=== PATIENT | female | born 1930 | race Hispanic/Latino ===

== ENCOUNTER 2018-01-28 17:59 | Inpatient (IN) | payer MEDICAID ==
[~2018-01-28] VITALS: Ht 154.9 cm; Wt 53.6 kg
[2018-01-28] VITALS (12 sets, daily range): BP systolic 78–96; BP diastolic 50–65
[2018-01-28] MEDS ORDERED: NITROGLYCERIN/D5W 200 MCG/ML 250 ML ONE (18:10)
[2018-01-28] MEDS ORDERED: SODIUM CHLORIDE 0.9% 1000ML 1,000 ML ONE (18:12)
[2018-01-28 18:16] LABS: BASOPHILS % 0.2 % (0.0-1.0); HEMATOCRIT 40.2 % (34.2-44.1); HEMOGLOBIN 13.4 g/dL (12.0-16.0); LYMPHOCYTES # (AUTO) 0.9 (1.0-3.2); LYMPHOCYTES % 6.6 % (18.0-39.1); MEAN CORPUSCULAR HEMOGLOBIN 29.7 pg (28-32); MEAN CORPUSCULAR HGB CONC 33.3 g/dL (31-35); MEAN CORPUSCULAR VOLUME 89.1 fL (81-99); MONOCYTES # (AUTO) 0.9 (0.2-0.8); MONOCYTES % 6.8 % (4.4-11.3); NEUTROPHILS # (AUTO) 11.9 (2.1-6.9); NEUTROPHILS % 85.9 % (38.7-80.0); PLATELET COUNT 364 x10e3/uL (140-360); RED BLOOD COUNT 4.51 x10e6/uL (3.6-5.1); RED CELL DISTRIBUTION WIDTH 13.2 % (11.7-14.4)
--- NOTE | 2018-01-28 18:16 | Diagnostic Imaging Report ---
PROCEDURE: A single AP view of the chest. COMPARISON: None. INDICATIONS: SOB FINDINGS: See impression. IMPRESSION: 1. bilateral interstitial and alveolar opacities extending from the lalita consistent with pulmonary edema. 2. Opacification of the right lower hemithorax, likely representing pleural effusion and associated atelectasis. 3. Cardiac silhouette is obscured. 4. No acute bony abnormalities. Iglesia Pro M.D. Dictated by: Iglesia Pro M.D. on 01/28/2018 at 18:17 Electronically approved by: Iglesia Pro M.D. on 01/28/2018 at 18:17
[2018-01-28 18:20] LABS: ABG HCO3 26 mmol/L (23-28); ABG PCO2 55 mmHg (41-51); ABG PH 7.28 (7.31-7.41); ABG PO2 119 mmHg (80-105)
[2018-01-28 18:25] LABS: INR 1.42; PROTHROMBIN TIME 16.3 seconds (11.9-14.5)
[2018-01-28 18:26] LABS: PARTIAL THROMBOPLASTIN TIME 38.4 seconds (23.8-35.5)
[2018-01-28 18:34] LABS: ALBUMIN/GLOBULIN RATIO 0.6 (0.8-2.0); ANION GAP 18.6 mmol/L (8-16); CALCIUM 9.4 mg/dL (8.4-10.2); CREATININE, SERUM 1.21 mg/dL (0.57-1.11); POTASSIUM 4.6 mmol/L (3.5-5.1)
[2018-01-28 18:43] LABS: CREATINE KINASE MB 2.8 ng/mL (0-5.0)
[2018-01-28] MEDS ORDERED: FENTANYL CITRATE/PF 100MCG/2 ML INJ ONE (18:53)
[2018-01-28] MEDS ORDERED: FUROSEMIDE INJ 10 MG/ML 4 ML VIAL ONE (18:57)
[2018-01-28] MEDS ORDERED: AMIODARONE HCL 150MG 100 ML IV SCH (19:00)
[2018-01-28] MEDS ORDERED: AMIODARONE HCL 360MG 200 ML IV SCH (19:00)
[2018-01-28] MEDS ORDERED: SODIUM CHLORIDE 0.9% 250ML 250 ML IV STA (19:05)
[2018-01-28] MEDS ORDERED: AMIODARONE HCL 100 ML IV ONE (19:07)
[2018-01-28] MEDS ORDERED: PROPOFOL IV EMULSION 10MG/ML 100 ML ONE (19:08)
[2018-01-28] MEDS ORDERED: AMIODARONE HCL 150 MG in DEXTROSE 5% 100ML 100 ML IV SCH (19:15)
[2018-01-28] MEDS ORDERED: SODIUM CHLORIDE FLUSH 10 ML SYR INJ PRN (19:15)
[2018-01-28 19:18] LABS: CLARITY,URINE SL CLOUDY (CLEAR); COLOR,URINE YELLOW (YELLOW); KETONES,URINE NEGATIVE (NEGATIVE); LEUKOCYTE ESTERASE ,URINE NEGATIVE (NEGATIVE); NITRITE,URINE NEGATIVE (NEGATIVE); PROTEIN,URINE DIPSTICK 2+ (NEGATIVE); URINE UROBILINOGEN 4 mg/dL (0.2 - 1)
[2018-01-28 19:19] LABS: BILIRUBIN,URINE 1+ (NEGATIVE)
--- NOTE | 2018-01-28 19:25 | Diagnostic Imaging Report ---
Portable chest x-ray CPT code 04305 INDICATION: Intubated COMPARISON: Chest x-ray 1806 hours FINDINGS: Frontal view of the chest obtained at 1911 hours. The patient is slightly rotated. The cardiac silhouette is enlarged. Endotracheal tube terminates 3 to 4 cm above the franny. There is prominence of the soft tissue of the upper mediastinum to the right of midline. The lungs demonstrate prominence of the pulmonary vasculature. There is better aeration of the lungs. Right basilar airspace disease is present. There are no large effusions. No pneumothorax. The osseous structures are intact. IMPRESSION: 1. Endotracheal tube as described above. 2. Cardiomegaly and pulmonary vascular congestion. 3. Prominence of the upper mediastinum to the right of midline could represent soft tissue mass, lymphadenopathy, or vascular structures. 4. Right basilar airspace opacity could represent pneumonia. Attention should be paid on subsequent studies to assess interval change. Signed by: Dr. Shelley Stovall MD on 01/28/2018 7:21 PM
[2018-01-28] MEDS ORDERED: PROPOFOL IV EMULSION 10MG/ML 100 ML IV PRN ×2 (19:30→19:45)
[2018-01-28] MEDS: PROPOFOL IV EMULSION 10MG/ML 100 ML IV PRN (19:38)
[2018-01-28] MEDS: AMIODARONE HCL 900 MG in DEXTROSE 5 % 500ML BOTTLE 500 ML IV SCH (19:45)
[2018-01-28 19:49] LABS: AMORPHOUS SEDIMENT,URINE MANY (FEW); BACTERIA,URINE FEW /HPF
--- OUTSIDE RECORDS SUMMARY | 2018-01-28 20:09 | XMS REPORT ---
Author Author [facility] Address Unknown Phone Unavailable Care Team Providers Care Integrity Analyst Name Role Phone JAIME LYNNE Unavailable Unavailable Problems This patient has no known problems. Allergies, Adverse Reactions, Alerts This patient has no known allergies or adverse reactions. Medications This patient has no known medications. Results Test Description Test Time Test Comments Text Results Atomic Results Result Comments CHEST SINGLE (PORTABLE) [place] [address] Patient Name: HANNA MERCADO MR #: [id number] : 1930 Age/Sex: 87/F Req #: [id number] Adm Physician: Ordered by: JAIME LYNNE MD Report #: [id number] Location: ER Room/Bed: Procedure: [id number] DX/CHEST SINGLE (PORTABLE) Exam Date: Exam Time: REPORT STATUS: Signed Portable chest x-ray CPT code 63703 INDICATION: Intubated COMPARISON: Chest x-ray 1806 hours FINDINGS: Frontal view of the chest obtained at 1911 hours. The patient is slightly rotated. The cardiac silhouette is enlarged. Endotracheal tube terminates 3 to 4 cm above the franny. There is prominence of the soft tissue of the upper mediastinum to the right of midline. The lungs demonstrate prominence of the pulmonary vasculature. There is better aeration of the lungs. Right basilar airspace disease is present. There are no large effusions. No pneumothorax. The osseous structures are intact. IMPRESSION: 1. Endotracheal tube as described above. 2. Cardiomegaly and pulmonary vascular congestion. 3. Prominence of the upper mediastinum to the right of midline could represent soft tissue mass, lymphadenopathy, or vascular structures. 4. Right basilar airspace opacity could represent pneumonia. Attention should be paid on subsequent studies to assess interval change. Signed by: Dr. Abdullahi Stovall MD on 01/28/2018 7: 21 PM Dictated By: ABDULLAHI STOVALL MD 20 Transcribed By: PAULETTE on 01/28/181920 COPY TO: JAIME LYNNE MD CHEST SINGLE (PORTABLE) [place] [address] Patient Name: HANNA MERCADO MR #: [id number] : 1930 Age/Sex: 87/F Req #: [id number] Adm Physician: Ordered by: JAIME LYNNE MD Report #: [id number] Location: ER Room/Bed: Procedure: [id number] DX/CHEST SINGLE (PORTABLE) Exam Date: 01/28/18 Exam Time: 1800 REPORT STATUS: Signed PROCEDURE: A single AP view of the chest. COMPARISON: None. INDICATIONS: SOB FINDINGS: See impression. IMPRESSION: 1. bilateral interstitial and alveolar opacities extending from the lalita consistent with pulmonary edema. 2. Opacification of the right lower hemithorax, likely representing pleural effusion and associated atelectasis. 3. Cardiac silhouette is obscured. 4. No acute bony abnormalities. May Pro M.D. Dictated by: May Pro M.D. on 01/28/2018 at 18:17 Electronically approved by: May Pro M.D. on 01/28/2018 at 18 :17 Dictated By: MAY PRO MD 16 Transcribed By: DASIA on 01/28/181816 COPY TO: JAIME LYNNE MD
[2018-01-28] MEDS ORDERED: SODIUM CHLORIDE 0.9% 250ML 250 ML ONE (22:10)
[2018-01-29] VITALS (88 sets, daily range): BP systolic 66–125; BP diastolic 46–87
[2018-01-29] MEDS ORDERED: AMIODARONE HCL 360MG 200 ML IV SCH
[2018-01-29] MEDS: PROPOFOL IV EMULSION 10MG/ML 100 ML IV PRN (02:35)
[2018-01-29 06:16] LABS: CREATINE KINASE MB 2.2 ng/mL (0-5.0)
--- NOTE | 2018-01-29 06:50 | Diagnostic Imaging Report ---
EXAMINATION: CHEST SINGLE (PORTABLE) INDICATION: Follow-up of edema and intubation COMPARISON: 01/28/2018 FINDINGS: TUBES and LINES: Endotracheal tube in good position 4.5 cm above the franny. LUNGS: Lungs are not well inflated. Improving multifocal area of airspace disease with more confluent opacity in the right lung base and perihilar region. PLEURA: No pleural effusion or pneumothorax. HEART AND MEDIASTINUM: The cardiomediastinal silhouette is unremarkable. BONES AND SOFT TISSUES: No acute osseous lesion. Soft tissues are unremarkable. UPPER ABDOMEN: No free air under the diaphragm. IMPRESSION: 1. Mild interval improvement of airspace disease and lung volumes. 2. Mild interstitial edema present. 3. Follow-up until resolution is recommended due to differential diagnosis between infection and malignancy. Signed by: Dr. Nicolas Barger M.D. on 01/29/2018 6:47 AM
[2018-01-29 10:44] LABS: BASOPHILS % 0.1 % (0.0-1.0); HEMATOCRIT 32.8 % (34.2-44.1); HEMOGLOBIN 11.4 g/dL (12.0-16.0); LYMPHOCYTES # (AUTO) 0.6 (1.0-3.2); LYMPHOCYTES % 4.6 % (18.0-39.1); MEAN CORPUSCULAR HEMOGLOBIN 29.8 pg (28-32); MEAN CORPUSCULAR HGB CONC 34.8 g/dL (31-35); MEAN CORPUSCULAR VOLUME 85.9 fL (81-99); MONOCYTES # (AUTO) 0.5 (0.2-0.8); MONOCYTES % 3.9 % (4.4-11.3); NEUTROPHILS # (AUTO) 12.3 (2.1-6.9); PLATELET COUNT 252 x10e3/uL (140-360); RED BLOOD COUNT 3.82 x10e6/uL (3.6-5.1); RED CELL DISTRIBUTION WIDTH 13.2 % (11.7-14.4)
[2018-01-29] MEDS: AMIODARONE HCL 900 MG in DEXTROSE 5 % 500ML BOTTLE 500 ML IV SCH (10:57)
[2018-01-29 10:59] LABS: ANION GAP 15.7 mmol/L (8-16); CREATININE, SERUM 1.35 mg/dL (0.57-1.11); POTASSIUM 4.7 mmol/L (3.5-5.1)
[2018-01-29] MEDS ORDERED: ENOXAPARIN SODIUM INJ 100 MG/ML SYR SC SCH (11:30)
[2018-01-29 11:34] LABS: CREATINE KINASE MB 1.7 ng/mL (0-5.0)
--- NOTE | 2018-01-29 11:44 | Consultation ---
DATE OF CONSULTATION: CARDIOLOGY CONSULTATION CHIEF COMPLAINT: The patient is an 87-year-old with respiratory distress. HISTORY OF PRESENT ILLNESS: The patient is an 87-year-old who became severely short of breath at home and was taken by ambulance to the emergency room. The patient was subsequently intubated and admitted to the ICU. The patient was noted to have atrial fibrillation with a rapid ventricular response. There was no report of fevers or coughing at home. No report of chest pain at home. PAST MEDICAL HISTORY 1. The patient was apparently recently admitted to [facility] with a similar event about 3 weeks ago. 2. The patient has a history of atrial fibrillation. 3. History of congestive heart failure. SOCIAL HISTORY: The patient is from [facility]. The patient lives at home with her family. PHYSICAL EXAMINATION GENERAL: The patient is an intubated female. VITAL SIGNS: Temperature 98.8, blood pressure 102/62, pulse 75. HEAD, EARS, EYES, NOSE AND THROAT: The patient's cranium is normocephalic and atraumatic. The extraocular muscles are intact. Sclerae are anicteric. Pupils are equal, round and reactive to light. There is no pallor or cyanosis of the oral mucosa. There is no erythema or edema in the throat. NECK: The neck is supple. No jugular venous distention. CHEST: Exam demonstrated rhonchi and rales bilaterally. CARDIAC: Exam demonstrated an irregularly irregular rhythm. There was a 2/6 systolic murmur. ABDOMEN: Good bowel sounds, no tenderness, no masses. EXTREMITIES: No clubbing, no cyanosis, no edema. NEUROLOGIC: The patient was heavily sedated, and it was difficult to assess neurologic function. The patient was unresponsive on my exam. The patient's EKG demonstrated atrial fibrillation with rapid ventricular response. IMPRESSION: The patient is an 87-year-old with respiratory arrest of unclear etiology. Possibilities include congestive heart failure, aspiration or pulmonary embolism. Given the limited history, it is difficult to tell. RECOMMENDATIONS 1. Echocardiogram has been ordered. 2. The patient has been started on IV amiodarone for atrial fibrillation. 3. The patient will be diuresed with IV Lasix. 4. The patient will require anticoagulation with Lovenox. Job#: [id number]
[2018-01-29] MEDS: ENOXAPARIN SOD INJ 60 MG/0.6 ML SYR SC SCH (11:45)
[2018-01-29] MEDS: FUROSEMIDE INJ 10 MG/ML 4 ML VIAL IV SCH ×2 (12:00→18:27)
[2018-01-29] MEDS ORDERED: METHYLPREDNISOLONE SOD SUCC 40 MG/ML VIAL IV ONE (12:30)
[2018-01-29] MEDS ORDERED: MIDAZOLAM HCL 2 MG/2 ML VIAL ONE (13:46)
[2018-01-29] MEDS ORDERED: SUCCINYLCHOLINE CHLORIDE 20 MG/ML 10ML VIAL ONE (13:46)
[2018-01-29] MEDS ORDERED: ETOMIDATE 2 MG/ML 10 ML INJ IV ONE (13:46)
[2018-01-29] MEDS ORDERED: DEXTROSE 50% SYRINGE 50 ML IV PRN (15:45)
[2018-01-29] MEDS ORDERED: INSULIN DETEMIR 100 UNIT/ML PEN SQ SCH (15:45)
[2018-01-29] MEDS: FAMOTIDINE 20 MG TAB PO SCH (16:30)
[2018-01-29] MEDS: INSULIN REGULAR, HUMAN 100 UNIT/1 ML 3ML VIAL SQ SCH (16:30)
[2018-01-29 16:37] LABS: ABG PCO2 32 mmHg (41-51); ABG PH 7.49 (7.31-7.41); ABG PO2 63 mmHg (80-105)
[2018-01-29 16:38] LABS: ABG HCO3 25 mmol/L (23-28)
--- NOTE | 2018-01-29 17:43 | History and Physical ---
The patient has no local PCP. CHIEF COMPLAINT: Respiratory distress. HISTORY OF PRESENT ILLNESS: Ms. Monico Claros is an 87-year-old lady who has a history of hypertension, who was in her usual state of health until 2 weeks ago when she developed respiratory distress and palpitations and was seen at [facility] for AFib with rapid ventricular response. The patient had pulmonary edema at that time and also was noted to have some chronic lung changes possibly related to former smoking and second-hand smoke. The patient was kept in [facility] for several days. She was discharged home with cardiac medications, which the family does not know what they are. She was started on Eliquis, which when she went home the pharmacy did not have it for a couple of days. She was discharged home about 3 or 4 days ago. She did not take any medication the 1st day she was home. She was unable to take her Eliquis and another one of her heart medicines the 2nd day, but did take all of her medications yesterday. They did not bring a list of medications or what she was taking. She presents now with several hours of rapidly deteriorating respiratory distress, very short of breath with palpitations. Found to be in AFib with a rate of 150 with marked respiratory distress. The patient was urgently intubated in the ER. Her initial blood gas prior to intubation showed pH 7.28, a pCO2 of 55, pO2 of 119. REVIEW OF SYSTEMS: Unobtainable as the patient is intubated and sedated. PAST MEDICAL HISTORY: Significant for longstanding hypertension. Recent development of atrial fibrillation 2 weeks ago with evidence of congestive heart failure at that time, probably diastolic. Unable to know for sure. The family denies the patient has a history of diabetes although her blood sugars are quite elevated. COPD, which was diagnosed 2 weeks ago at [facility] with chronic lung changes on her chest x-ray. MEDICATIONS: Again, currently unknown. SURGICAL HISTORY: Her family denies any significant surgical history. SOCIAL HISTORY: As noted, she is a former smoker. FAMILY HISTORY: Significant for hypertension. SOCIAL HISTORY: The patient is and speaks only [place]. She is from [facility]. She moved here 3 years ago. She smoked 1 cigarette a day in [facility], which she rolled herself, and she cooked using a wood-burning stove indoors up until 3 years ago, so a lot of smoke and second-hand smoke exposure. The patient speaks only [place]de[place]. She does not drink or use illegal drugs. She is generally independently functioning. PHYSICAL EXAMINATION PSYCHIATRIC: Unable to obtain due to intubation and sedation. She has a normal body habitus. VITAL SIGNS: Initial blood pressure 131/80, currently 98/68. Initial heart rate 150, atrial fib with RVR. Currently 99, still in AFib. Respiratory rate 16 on the ventilator. O2 sat 100%. Temperature 98.1. HEENT: Head is atraumatic. Her eyes are anicteric with clear conjunctivae. Ears and nares are without erythema or discharge. She is orally intubated. NECK: Supple, with no mass or thyromegaly. LYMPHATIC SYSTEM: She has no palpable cervical, axillary or inguinal adenopathy. CARDIOVASCULAR: Her heart has an irregularly irregular rhythm, somewhat tachycardic without murmur. She has no carotid bruit. She has no peripheral edema. She has weak dorsal pedal pulses. RESPIRATORY: Lungs reveal diminished breath sounds, some bibasilar rales. Some coarse airway sounds. She is being ventilated. GASTROINTESTINAL: Abdomen is soft without organomegaly, masses or tenderness. She has normal bowel sounds present. CUTANEOUS: Her skin is warm and dry to touch with no rash or skin breakdown. MUSCULOSKELETAL: Her joints are in normal alignment with no erythema or swelling. She has no calf tenderness. NEUROLOGIC: Exam is nonfocal with intact cranial nerves and no motor or sensory deficits. Patient is sedated but does move all extremities. DIAGNOSTIC STUDIES: Initial chest x-ray shows bilateral pulmonary edema. Subsequent chest x-ray shows status post intubation. Then her chest x-ray this morning showed some mild improvement in aeration bilaterally. Her UA is clear. BNP initially 708.1, today 781.1. Troponin 0.037, 0.057, 0.057, all negative. Blood gases noted above showed a pH of 7.28, pCO2 of 55, pO2 of 119. That was on room air prior to intubation. Her chemistry profile shows normal electrolytes. CO2 24, creatinine 1.35, BUN 24 for a GFR of 37. Calcium is 9.0. Her transaminases and alk phos are markedly elevated. AST is 244, ALT is 175, alk phos is 226. Bilirubin is normal at 0.7. Her CBC shows a white count of 13,400 with 91% neutrophils. Hemoglobin 11.4, hematocrit 32.8 and platelet count 252,000. IMPRESSION AND PLAN 1. Uaipn-te-ggqabaa diastolic heart failure. The patient has been given IV Lasix times 3 doses. Will check an echocardiogram to assess LV function. 2. Atrial fibrillation with rapid ventricular response. The patient has been in atrial fibrillation for 2 weeks, unlikely that she will convert. She is currently on IV amiodarone for rate control. Cardiology has been consulted, and she has been started on weight-based Lovenox 60 mg subcutaneous q.12 h. 3. History of hypertension. Patient is currently normotensive. Will continue to monitor. 4. Hyperglycemia without a previous diagnosis of diabetes. The patient will be placed on sliding-scale insulin, and will check an A1c level. Will also use some Levemir. 5. The hypertension is complicated by chronic kidney disease, stage 3. The type-2 diabetes is also complicated by chronic kidney disease, stage 3. Hypertension is also complicated by chronic diastolic heart failure. 6. Elevated liver enzymes possibly due to passive congestion of the liver from the congestive heart failure. Will check an ultrasound and hepatitis panel. 7. For prophylaxis, the patient is on weight-based Lovenox for deep vein thrombosis and stroke prophylaxis and Pepcid orally for gastrointestinal prophylaxis. Job#: [id number]
[2018-01-29 18:03] LABS: CLARITY,URINE CLEAR (CLEAR); COLOR,URINE YELLOW (YELLOW)
[2018-01-29 18:04] LABS: KETONES,URINE NEGATIVE (NEGATIVE); LEUKOCYTE ESTERASE ,URINE NEGATIVE (NEGATIVE); NITRITE,URINE NEGATIVE (NEGATIVE); PROTEIN,URINE DIPSTICK NEGATIVE (NEGATIVE)
[2018-01-29 18:05] LABS: BILIRUBIN,URINE NEGATIVE (NEGATIVE); URINE UROBILINOGEN 0.2 mg/dL (0.2 - 1)
[2018-01-29 18:12] LABS: BACTERIA,URINE MODERATE /HPF; EPITHELIAL CELLS,URINE FEW /LPF; RBC,URINE >50 /HPF (0-5)
[2018-01-29 18:13] LABS: AMORPHOUS SEDIMENT,URINE FEW (FEW)
[2018-01-29] MEDS: LEVALBUTEROL HCL SOLN NEBU 0.63 MG/3 ML NEB INH PRN (19:10)
--- NOTE | 2018-01-29 19:46 | Consultation ---
DATE OF CONSULTATION: PULMONARY/CRITICAL CARE CONSULTATION CHIEF COMPLAINT: Respiratory failure. REFERRING PHYSICIAN: Dr. Doherty. HISTORY OF PRESENT ILLNESS: The patient is an 87-year-old woman. She lived in [facility] up until 4 to 5 years ago. She was not a smoker, but she cooked with a wood stove for most of her life. She never had tuberculosis, asthma, or any other known to pulmonary disease. About 3 weeks ago, she had difficulty breathing and a fast heart rate. She required hospitalization at [facility] for 10 days. She was seen at [facility] and discharged home with some medications. She also had a pulmonary evaluation. Apparently, she had a bronchoscopy with biopsy, but the family does not know the results of this. She now returns with difficulty breathing and congestion. She has some prolonged expiratory wheezing. She did not have chest pain. She denied any fevers. PAST SURGICAL HISTORY: The family denies any past surgeries. PAST MEDICAL HISTORY 1. History of rapid heart rate and difficulty breathing at [facility], which may be atrial fibrillation. 2. No known history of asthma, tuberculosis, or other respiratory problems. SOCIAL HISTORY: The patient lived in [facility] up until 4 or 5 years ago. She cooked with a wood stove most of her life. She occasionally smoked a cigarette, but was not a regular smoker. She has not been a drinker. She has 6 adult children, all of whom live in the [place] area. The third adult son has assigned durable power of employment attorney for health care. FAMILY HISTORY: Family history is noncontributory. REVIEW OF SYSTEMS: The patient did not have fevers. There was no headache. Patient did not have any neck pain. She did not have chest pain. She did have some difficulty breathing and some congestion. She denied any abdominal pain. There is no nausea or vomiting. She is not having any diarrhea. There was no leg edema. She did not have any focal neurological problems. PHYSICAL EXAMINATION VITAL SIGNS: The patient is afebrile. Vital signs are stable. HEENT: Shows no facial swelling or erythema. The nasal mucosa is normal. The oropharynx is normal. LYMPHATIC: Shows no submandibular, cervical, or supraclavicular adenopathy. CARDIAC: Reveals a regular rate rhythm with a normal S1 and S2. There are no murmurs or rubs. LUNGS: To auscultation, lungs reveal coarse breath sounds bilaterally. ABDOMEN: Soft and nontender. There is no rebound or guarding. EXTREMITIES: Show no leg edema or calf tenderness. There is no cyanosis or clubbing. SKIN: Shows no rashes. NEUROLOGIC: Shows no focal abnormalities. LABORATORY DATA: The white blood cell count is 13.5 and hemoglobin is 11.4. The platelet count is 252. The BUN to creatinine ratio is 24 to 1.35 and sodium is 130. The BNP was elevated at 281. RADIOGRAPHIC DATA: Chest x-ray shows some interstitial changes suggestive of possible congestive heart failure. IMPRESSION 1. Qzsqz-uv-zybgima respiratory failure. 2. Gihtj-bk-pszijbg systolic congestive heart failure. 3. Chronic obstructive pulmonary disease secondary to biomass exposure and prolonged exposure to smoke fumes. 4. Hyponatremia. PLAN 1. I decreased the tidal volume to 450 mL. We will repeat an ABG. 2. Continue diuresis and repeat x-ray tomorrow. 3. Echocardiogram and full cardiology evaluation are pending. 4. Sputum for Gram stain and C and S. 5. Obtain records from [facility]. Job#: [id number] VAS
[2018-01-29] MEDS: INSULIN DETEMIR 100 UNIT/ML PEN SQ SCH (21:00)
[2018-01-30] VITALS (64 sets, daily range): BP systolic 75–126; BP diastolic 42–90
[2018-01-30] MEDS: ENOXAPARIN SOD INJ 60 MG/0.6 ML SYR SC SCH ×2 (00:37→11:45)
[2018-01-30] MEDS: INSULIN REGULAR, HUMAN 100 UNIT/1 ML 3ML VIAL SQ SCH ×5 (00:38→21:00)
[2018-01-30] MEDS: LEVALBUTEROL HCL SOLN NEBU 0.63 MG/3 ML NEB INH PRN ×4 (00:50→19:00)
[2018-01-30] MEDS: AMIODARONE HCL 900 MG in DEXTROSE 5 % 500ML BOTTLE 500 ML IV SCH (02:39)
[2018-01-30 05:56] LABS: BASOPHILS % 0.2 % (0.0-1.0); HEMATOCRIT 33.4 % (34.2-44.1); HEMOGLOBIN 11.6 g/dL (12.0-16.0); LYMPHOCYTES # (AUTO) 0.8 (1.0-3.2); LYMPHOCYTES % 5.1 % (18.0-39.1); MEAN CORPUSCULAR HEMOGLOBIN 29.8 pg (28-32); MEAN CORPUSCULAR HGB CONC 34.7 g/dL (31-35); MEAN CORPUSCULAR VOLUME 85.9 fL (81-99); MONOCYTES # (AUTO) 1.2 (0.2-0.8); MONOCYTES % 7.9 % (4.4-11.3); NEUTROPHILS # (AUTO) 13.1 (2.1-6.9); NEUTROPHILS % 86.1 % (38.7-80.0); PLATELET COUNT 331 x10e3/uL (140-360); RED BLOOD COUNT 3.89 x10e6/uL (3.6-5.1); RED CELL DISTRIBUTION WIDTH 13.3 % (11.7-14.4)
[2018-01-30 06:26] LABS: ALBUMIN 2.5 g/dL (3.5-5.0); ALBUMIN/GLOBULIN RATIO 0.5 (0.8-2.0); CALCIUM 9.2 mg/dL (8.4-10.2); CREATININE, SERUM 1.39 mg/dL (0.57-1.11)
[2018-01-30 06:27] LABS: MAGNESIUM 2.2 MG/DL (1.3-2.1)
[2018-01-30 06:28] LABS: B-TYPE NATRIURETIC PEPTIDE2 768.8 pg/mL (0-100)
[2018-01-30 06:48] LABS: FREE T4 (FREE THYROXINE) 1.51 ng/dL (0.9-1.8); THYROID STIMULATING HORMONE 0.32 uIU/mL (0.350-4.940)
--- NOTE | 2018-01-30 06:59 | Diagnostic Imaging Report ---
EXAMINATION: CHEST SINGLE (PORTABLE) INDICATION: Respiratory failure COMPARISON: 01/28/2018 FINDINGS: TUBES and LINES: Endotracheal tube in good position 2.5 cm above the franny. LUNGS: Lungs are not well inflated. Worsening multifocal area of airspace disease with more confluent opacity in the right lung base and perihilar region. PLEURA: Small right pleural effusion HEART AND MEDIASTINUM: The cardiomediastinal silhouette is unremarkable. BONES AND SOFT TISSUES: No acute osseous lesion. Soft tissues are unremarkable. UPPER ABDOMEN: No free air under the diaphragm. IMPRESSION: 1. Worsening of airspace disease and lung volumes. 2. Mild interstitial edema present. 3. Follow-up until resolution is recommended due to differential diagnosis between infection and malignancy. Signed by: Dr. Nicolas Barger M.D. on 01/30/2018 6:55 AM
[2018-01-30] MEDS: FAMOTIDINE 20 MG TAB PO SCH ×2 (07:30→16:30)
[2018-01-30] MEDS: INSULIN DETEMIR 100 UNIT/ML PEN SQ SCH (09:00)
[2018-01-30] MEDS: AZITHROMYCIN 500MG/NS 250 ML 250 ML IV SCH (09:30)
[2018-01-30] MEDS: LEVOFLOXACIN 250MG/D5W 50ML 50 ML IV SCH (09:30)
[2018-01-30] MEDS ORDERED: AMIODARONE HCL 900 MG in DEXTROSE 5% 500ML 500 ML IV SCH (09:45)
[2018-01-30] MEDS ORDERED: AMIODARONE HCL 150 MG/100 ML BAG IV ONE (09:45)
[2018-01-30] MEDS ORDERED: LORAZEPAM INJ 2 MG/ML VIAL IV ONE (09:45)
[2018-01-30] MEDS ORDERED: AMIODARONE HCL 150 MG in DEXTROSE 5% 100ML 100 ML IV SCH (10:00)
[2018-01-30] MEDS ORDERED: AMIODARONE HCL 900 MG in DEXTROSE 5% 500ML 500 ML IV ONE (10:00)
--- NOTE | 2018-01-30 10:05 | Progress Note ---
DATE: PULMONARY/CRITICAL CARE PROGRESS NOTE The patient had an increased heart rate during the night. Her heart rate is 140 to 150 with irregularly irregular periods. She was on amiodarone. She remains on the mechanical ventilator. She does have some secretions. OBJECTIVE VITAL SIGNS: The patient has a blood pressure of 90/60 and has a heart rate of 140 to 150. Her vent is set at PRVC of 16 with a tidal volume of 400. Her oxygen is set at 50%, and her saturation is 96%. HEENT: No facial swelling or erythema. The patient has an oral endotracheal tube in place. LYMPHATIC: No submandibular, cervical, or supraclavicular adenopathy. CARDIAC: An irregularly irregular rhythm with a normal S1 and S2. LUNGS: Auscultation reveals wheezing and rhonchorous breath sounds bilaterally. ABDOMEN: Soft and nontender. There is no rebound or guarding. EXTREMITIES: No leg edema or calf tenderness. IMPRESSION 1. Kdgab-je-vyibejf respiratory failure. 2. Zmbth-is-snrtuue systolic congestive heart failure. 3. Leukocytosis and possible pneumonia. 4. Chronic obstructive pulmonary disease. PLAN 1. The patient will be started on antibiotics to cover for hospital-acquired pathogens and possible pneumonia. 2. Consult infectious disease. 3. Pressors as needed to maintain a mean arterial blood pressure over 60. 4. Adjust cardiac medications to control the rapid atrial fibrillation. 5. Apparently, the patient does not have a living will in place. 6. The overall prognosis is poor. Job#: [id number]
[2018-01-30] MEDS ORDERED: DIGOXIN INJ 0.25 MG/ML 2 ML AMP IV ONE (12:45)
[2018-01-30] MEDS ORDERED: DIGOXIN INJ 0.25 MG/ML 2 ML AMP ONE (12:51)
[2018-01-30] MEDS: SODIUM CHLORIDE 0.9% 250ML IRRIG IR SCH ×3 (13:00→21:00)
--- NOTE | 2018-01-30 13:35 | Diagnostic Imaging Report ---
EXAM: Complete Abdominal Ultrasound INDICATION: \S\elevated liver enzymes COMPARISON: None. TECHNIQUE: Transverse and longitudinal images of the upper abdomen were obtained. FINDINGS: Liver: Size: 14.2 cm in the right midclavicular line, normal Appearance: Normal echogenicity, smooth contour Mass: No focal masses Spleen: Size: 6.5 cm in length, normal Echogenicity: Normal Mass: No focal masses Gallbladder: Stones/Sludge: Multiple large echogenic gallstones measuring up to 1 cm Wall: 0.2 cm Appearance: No wall thickening, pericholecystic fluid or hydrops. Sonographic Rogers's Sign: Negative Bile Ducts: Intrahepatic Ducts: No dilatation Extrahepatic Ducts: Common bile duct measures 0.4 cm, no dilatation Pancreas: Visualized portions of the pancreatic head, neck and proximal body are normal. Kidneys: Length: Right 8.2 cm Left 9.0 cm Echogenicity: Normal Collecting System: No hydronephrosis Stone: None Cyst/Mass: None Vessels: Aorta: Visualized portions are normal Inferior Vena Cava: Visualized portions are normal Main Portal Vein: 0.9 cm, normal size with hepatopetal flow. Free Fluid: No ascites or pleural effusion IMPRESSION: Cholelithiasis. No sonographic findings to suggest cholecystitis. LV hyper to kid LV hypo to spleen García hyper to LV Liver Male < 16 cm Female < 15 cm Kidneys: NL 9-12 cm, <13 cm Spleen < 12 cm CBD < 7 mm CHD < 4-5 mm GB Wall < 3 mm Hydrops > 10 x 5 cm PV < 13 mm Panc. duct 3-2-1 Signed by: Dr. Maki Foy M.D. on 01/30/2018 1:31 PM
[2018-01-30] MEDS: METOCLOPRAMIDE HCL 10 MG TAB NG SCH ×2 (14:00→22:00)
[2018-01-30] MEDS: FUROSEMIDE INJ 10 MG/ML 4 ML VIAL IV SCH ×2 (14:00→23:22)
[2018-01-30] MEDS: PIPERACILLIN/TAZO 2.25 GM 50 ML IV SCH ×2 (14:00→21:55)
--- NOTE | 2018-01-30 15:51 | Diagnostic Imaging Report ---
EXAMINATION: CHEST XRAY LINE PLACEMENT INDICATION: \S\S/P PICC LINE PLACEMENT \[id number] \S\[id number] COMPARISON: Chest radiograph on 01/30/2018 5:00 AM FINDINGS: Single portable AP view of the chest. The visualized bones and soft tissues, cardiac silhouette lungs, pleura appear unchanged. IMPRESSION: 1. Lines/tubes: Interval placement of a right PICC with tip overlying the superior right atrium. Endotracheal tube remains unchanged. 2. Worsening patchy airspace opacities, right greater than left may represent a combination of edema and multifocal pneumonia. 3. Worsening blunting of the right costophrenic angle suggestive of pleural effusion. Signed by: Dr. Maki Foy M.D. on 01/30/2018 3:48 PM
[2018-01-30] MEDS ORDERED: DILTIAZEM HCL 5 MG/ML 5 ML VIAL IV ONE (16:00)
[2018-01-30] MEDS ORDERED: DILTIAZEM HCL 100 ML IV SCH (16:00)
[2018-01-30] MEDS ORDERED: DILTIAZEM HCL IV SOLN 125 MG in SODIUM CHLORIDE 0.9% 100 ML 100 ML IV PRN ×4 (16:15)
[2018-01-30] MEDS: DILTIAZEM HCL IV SOLN 125 MG in SODIUM CHLORIDE 0.9% 100 ML 100 ML IV SCH (16:15)
[2018-01-30] MEDS ORDERED: DILTIAZEM HCL VIAL 5 ML ONE (16:38)
[2018-01-30] MEDS ORDERED: DIGOXIN INJ 0.25 MG/ML 2 ML AMP IV SCH (16:45)
[2018-01-30] MEDS ORDERED: SODIUM CHLORIDE 0.9% 250ML 500 ML ONE (16:48)
[2018-01-30] MEDS ORDERED: LORAZEPAM INJ 2 MG/ML VIAL ONE (16:58)
--- NOTE | 2018-01-30 17:00 | Diagnostic Imaging Report ---
EXAMINATION: CHEST XRAY LINE PLACEMENT INDICATION: \S\CHECK PICC LINE PLACEMENT COMPARISON: None FINDINGS: AP view FINDINGS: Single portable AP view of the chest. The visualized bones and soft tissues, cardiac silhouette lungs, pleura appear unchanged. IMPRESSION: 1. Lines/tubes: Interval pretreatment of the right PICC with tip now overlying the mid/lower SVC. Endotracheal tube remains unchanged. 2. Persistent diffuse patchy airspace opacities, right greater than left may represent a combination of edema and multifocal pneumonia. 3. Persistent blunting of the right costophrenic angle suggestive of pleural effusion. Signed by: Dr. Mkai Foy M.D. on 01/30/2018 4:56 PM
[2018-01-30 17:53] LABS: ABG PCO2 32 mmHg (41-51); ABG PH 7.54 (7.31-7.41); ABG PO2 59 mmHg (80-105)
[2018-01-30 17:54] LABS: ABG HCO3 27 mmol/L (23-28)
[2018-01-30] MEDS: PROPOFOL IV EMULSION 10MG/ML 100 ML IV PRN (20:00)
[2018-01-30] MEDS ORDERED: FENTANYL CITRATE INJ 2,000 MCG in SODIUM CHLORIDE 0.9% 250ML 210 ML IV PRN (21:45)
[2018-01-30] MEDS ORDERED: NOREPINEPHRINE INJ 4MG/4ML 8 MG in DEXTROSE 5% 250ML 250 ML IV PRN (21:45)
[2018-01-30] MEDS: LORAZEPAM INJ 2 MG/ML VIAL IV PRN (21:55)
[2018-01-30 22:45] LABS: CLARITY,URINE CLOUDY (CLEAR); COLOR,URINE RED (YELLOW)
[2018-01-30 22:46] LABS: BILIRUBIN,URINE 1+ (NEGATIVE); KETONES,URINE TRACE (NEGATIVE); LEUKOCYTE ESTERASE ,URINE NEGATIVE (NEGATIVE); NITRITE,URINE NEGATIVE (NEGATIVE); PROTEIN,URINE DIPSTICK 2+ (NEGATIVE); URINE UROBILINOGEN 1 mg/dL (0.2 - 1)
[2018-01-30 22:48] LABS: BACTERIA,URINE MANY /HPF; EPITHELIAL CELLS,URINE FEW /LPF; RBC,URINE >50 /HPF (0-5); WBC,URINE (MAN) 0-5 /HPF (0-5)
--- NOTE | 2018-01-30 23:17 | Diagnostic Imaging Report ---
EXAM: ABDOMEN-1VIEW (KUB) DATE: 01/30/2018 10:29 PM Time stamp on exam: 2245 hours INDICATION: NG tube placement COMPARISON: None FINDINGS: LINES/TUBES: NG tube is visualized along the lower mediastinum, left upper quadrant and in the distribution of the gastric antrum and first/second portion of the duodenum BOWEL PATTERN: Motion artifact limits the evaluation. No evidence of significant distention. SOFT TISSUES: No abnormal calcifications. No mass effect. LUNG BASES: Lung bases are poorly visualized with atelectasis in the right lung base. BONES: No acute findings. IMPRESSION: NG tube appears to be in the distribution of the GI tract with tip at the duodenum. Signed by: Dr. Nicolas Barger M.D. on 01/30/2018 11:14 PM
[2018-01-30] MEDS ORDERED: FUROSEMIDE INJ 10 MG/ML 4 ML VIAL ONE (23:26)
[2018-01-31] VITALS (99 sets, daily range): BP systolic 60–135; BP diastolic 27–99
[2018-01-31] MEDS: ENOXAPARIN SOD INJ 60 MG/0.6 ML SYR SC SCH ×2 (00:08→12:34)
[2018-01-31] MEDS: LORAZEPAM INJ 2 MG/ML VIAL IV PRN (00:08)
[2018-01-31] MEDS: LEVALBUTEROL HCL SOLN NEBU 0.63 MG/3 ML NEB INH PRN ×3 (00:45→15:22)
[2018-01-31] MEDS: SODIUM CHLORIDE 0.9% 250ML IRRIG IR SCH ×6 (01:00→21:56)
[2018-01-31] MEDS: PROPOFOL IV EMULSION 10MG/ML 100 ML IV PRN ×3 (03:32→23:36)
--- NOTE | 2018-01-31 03:45 | Diagnostic Imaging Report ---
EXAMINATION: CHEST SINGLE (PORTABLE) INDICATION: Respiratory failure COMPARISON: 01/30/2018 FINDINGS: AP view FINDINGS: Single portable AP view of the chest. The visualized bones and soft tissues, cardiac silhouette lungs, pleura appear unchanged. IMPRESSION: 1. Lines/tubes: Interval placement of NG tube with distal tip at least at the level of the gastric antrum. Endotracheal tube and right upper extremity PICC line are stable. 2. Persistent diffuse patchy airspace opacities, right greater than left compatible with combination of edema and multifocal pneumonia. 3. Persistent blunting of the right costophrenic angle suggestive of pleural effusion. Signed by: Dr. Nicolas Barger M.D. on 01/31/2018 3:41 AM
--- NOTE | 2018-01-31 03:46 | Diagnostic Imaging Report ---
EXAM: ABDOMEN-1VIEW (KUB) DATE: 01/31/2018 5:00 AM Time stamp on exam: 0304 AM INDICATION: NG tube placement. COMPARISON: 01/30/2018 FINDINGS: LINES/TUBES: NG tube lies now in the epigastrium with tip overlying the region of the gastric antrum. BOWEL PATTERN: Few distended small bowel loops present in the right hemiabdomen. SOFT TISSUES: No abnormal calcifications. No mass effect. LUNG BASES: Poorly visualized. BONES: No acute findings. IMPRESSION: 1. Few distended small bowel loops in the right hemiabdomen. 2. NG tube is in good position. Signed by: Dr. Nicolas Barger M.D. on 01/31/2018 3:43 AM
[2018-01-31 05:20] LABS: BASOPHILS % 0.2 % (0.0-1.0); HEMATOCRIT 32.2 % (34.2-44.1); HEMOGLOBIN 10.8 g/dL (12.0-16.0); LYMPHOCYTES # (AUTO) 0.9 (1.0-3.2); LYMPHOCYTES % 6.7 % (18.0-39.1); MEAN CORPUSCULAR HEMOGLOBIN 29.4 pg (28-32); MEAN CORPUSCULAR HGB CONC 33.5 g/dL (31-35); MEAN CORPUSCULAR VOLUME 87.7 fL (81-99); MONOCYTES # (AUTO) 0.8 (0.2-0.8); MONOCYTES % 5.9 % (4.4-11.3); NEUTROPHILS # (AUTO) 11.2 (2.1-6.9); NEUTROPHILS % 86.7 % (38.7-80.0); PLATELET COUNT 309 x10e3/uL (140-360); RED BLOOD COUNT 3.67 x10e6/uL (3.6-5.1); RED CELL DISTRIBUTION WIDTH 13.8 % (11.7-14.4)
[2018-01-31 05:38] LABS: ALBUMIN 2.1 g/dL (3.5-5.0); ALBUMIN/GLOBULIN RATIO 0.5 (0.8-2.0); ANION GAP 14.7 mmol/L (8-16); CALCIUM 8.4 mg/dL (8.4-10.2); CREATININE, SERUM 1.41 mg/dL (0.57-1.11); POTASSIUM 3.7 mmol/L (3.5-5.1)
[2018-01-31] MEDS: METOCLOPRAMIDE HCL 10 MG TAB NG SCH ×3 (06:20→22:02)
[2018-01-31] MEDS: PIPERACILLIN/TAZO 2.25 GM 50 ML IV SCH (06:20)
[2018-01-31] MEDS: INSULIN REGULAR, HUMAN 100 UNIT/1 ML 3ML VIAL SQ SCH ×3 (06:39→18:21)
[2018-01-31] MEDS: FAMOTIDINE 20 MG TAB PO SCH ×2 (08:08→17:57)
[2018-01-31 08:12] LABS: BAND NEUTROPHILS % (MANUAL) 4 %; EOSINOPHILS % (MANUAL) 1 % (0-7); LYMPHOCYTES % (MANUAL) 8 % (19-48); MONOCYTES % (MANUAL) 3 % (3.4-9.0); NEUTROPHILS % (MANUAL) 84 % (40-74)
[2018-01-31 08:13] LABS: ANISOCYTOSIS SLIGHT; HYPOCHROMASIA SLIGHT; PLATELET ESTIMATE ADEQUATE; PLATELET MORPHOLOGY COMMENT NORMAL
[2018-01-31 08:14] LABS: RBC MORPHOLOGY COMMENT NORMAL
[2018-01-31] MEDS ORDERED: NOREPINEPHRINE 8 MG/D5W 250 ML 250 ML IV PRN (08:15)
[2018-01-31 08:29] LABS: ABG HCO3 29 mmol/L (23-28); ABG PCO2 41 mmHg (41-51); ABG PH 7.46 (7.31-7.41); ABG PO2 71 mmHg (80-105)
[2018-01-31] MEDS: NOREPINEPHRINE 8 MG/D5W 250 ML 250 ML IV PRN (08:30)
[2018-01-31] MEDS ORDERED: DIGOXIN INJ 0.25 MG/ML 2 ML AMP IV SCH (09:00)
[2018-01-31] MEDS: AZITHROMYCIN 500MG/NS 250 ML 250 ML IV SCH (09:30)
[2018-01-31] MEDS: AMIODARONE HCL 200 MG TAB PO SCH (09:30)
[2018-01-31] MEDS: LEVOFLOXACIN 250MG/D5W 50ML 50 ML IV SCH (09:30)
[2018-01-31] MEDS ORDERED: VANCOMYCIN 1GM/NS 250 ML 250 ML IV ONE (10:00)
[2018-01-31] MEDS: CEFEPIME HCL 1 GM VIAL IV SCH ×2 (10:30→22:02)
--- NOTE | 2018-01-31 10:37 | Consultation ---
DATE OF CONSULTATION: January 31, 2018 REASON FOR CONSULTATION: Leukocytosis. Thank you, Dr. Doherty, for asking me to see this patient. HISTORY: The patient is an 87-year-old woman referred for leukocytosis. She is unable to give history because she is intubated and sedated. Therefore, information was obtained from the family and supplemented by chart review. She was admitted through the emergency department on January 28, 2018, with acute hypercapnic respiratory failure 1-2 days after discharge from hospitalization. The patient presented to the emergency department with progressive shortness of breath and cough. There was no fever or chest pain at home. The patient had been hospitalized at [facility] for 10 days because of similar issues, and was found to have atrial fibrillation with rapid ventricular rate. The patient had became ill in [facility] while visiting. The family denies sick contact at [facility], but the patient was exposed to parrots and chicken. In the emergency department, she was noted to have a temperature of 97.9 degrees Fahrenheit, pulse 138, respiratory rate 40, blood pressure 131/80, and oxygen saturation at 97% on 18 L of oxygen. The patient was intubated. ECG showed atrial fibrillation with rapid ventricular rate. The chest x-ray showed pulmonary edema and opacification of right lower hemothorax. Initial laboratory studies showed leukocyte count of 13,890 with 85.9% neutrophils. BUN 14, creatinine 1.2, blood glucose 333, AST 244, ALT 175, alk phos 226, and total bilirubin 0.7, and troponin 0.057. The patient's was evaluated by this hot stick man. PAST MEDICAL HISTORY: Hypertension. PAST SURGICAL HISTORY: None. ALLERGIES: NO KNOWN DRUG ALLERGIES. MEDICATIONS: The current antibiotics are: 1. Zosyn 2.25 g IVPB q.8 h. 2. Levaquin 250 mg IVPB q.24 h. 3. Azithromycin 500 mg IVPB q.24 h. IMMUNIZATIONS: She received pneumococcal vaccination on January 26, 2018, at [facility]. FAMILY HISTORY: Noncontributory. SOCIAL HISTORY: The patient never smoked and does not drink alcohol. However, she cooked on a wood stove most of her life. REVIEW OF SYSTEMS: Unable to obtain. PHYSICAL EXAMINATION GENERAL: Critically ill. VITAL SIGNS: T-max 101.7, T-current 97.8, pulse 106, respiratory rate 18, blood pressure 93/60, weight 133 pounds. HEENT: Atraumatic. There is no icterus, but there is injection of the right conjunctiva with crusting of the eyelashes. There is no ear or nasal discharge. Orally intubated. NECK: Supple. No lymphadenopathy. LUNGS: Rhonchi bilaterally. HEART: Normal S1 and S2. Irregular. ABDOMEN: Soft. EXTREMITIES: There is no edema, clubbing or cyanosis. SKIN: There is no acute erythema. PATCHING MACHINE OPERATOR: Sedated. LABORATORY: WBC is 12,900 down from 15,190, hemoglobin 10.8 and platelets 309,000. Segments 84, bands 4, lymphs 8, monos 3, eosinophils 1. BUN 35, creatinine 1.41, blood glucose 155, AST 153, ALT 122, alk phos 168, total bilirubin 0.9. Abdominal ultrasound showed cholelithiasis, but no evidence of cholecystitis and no ascites or pleural effusion. Repeat chest x-ray showed persistent and diffuse bilateral opacities, right greater than left compatible with a combination of edema or multifocal pneumonia. IMPRESSION 1. Leukocytosis, questionable pneumonia. 2. Acute hypoxic and hypercapnic respiratory failure. 3. Atrial fibrillation with rapid ventricular rate. 4. Hyperglycemia. PLAN 1. Await culture results. 2. Change Zosyn to cefepime 1 g IVP q.12 h. to reduce salt load. Stop Levaquin and azithromycin due to possible interaction with amiodarone. Start doxycycline 100 mg IVPB q.12 h. in view of exposure to parrots. Also, give vancomycin 1 g once today. Job#: [id number] NC
[2018-01-31] MEDS ORDERED: SODIUM CHLORIDE 0.9% 250ML 250 ML ONE (10:48)
[2018-01-31] MEDS: DOXYCYCLINE 100MG/NS 100ML 100 ML IV SCH ×2 (11:30→21:56)
--- NOTE | 2018-01-31 14:27 | Progress Note ---
DATE: PULMONARY/CRITICAL CARE PROGRESS NOTE The patient was started on Levophed last night. She received digoxin for a fast heart rate. Her heart rate is now 107. She is on 7 mcg of Levophed. She is on assist control mode of ventilation. OBJECTIVE VITAL SIGNS: The patient is afebrile. Blood pressure is 108/54, and the pulse is 94. HEENT: No facial swelling or erythema. The oropharynx is normal. There is a nasogastric tube in place. LYMPHATIC: No submandibular, cervical, or supraclavicular adenopathy. CARDIAC: Regular rate and rhythm with a normal S1 and S2. LUNGS: Auscultation reveals rhonchorous breath sounds bilaterally. There is wheezing. ABDOMEN: Soft and nontender. There is no rebound or guarding. EXTREMITIES: No leg edema or calf tenderness. There is no cyanosis or clubbing. SKIN: No rashes. NEUROLOGIC: No focal abnormalities. IMPRESSION 1. Ykgsq-hi-gyrtnkv respiratory failure. 2. Atrial fibrillation. 3. Aspiration pneumonia with severe sepsis. 4. Chronic obstructive pulmonary disease. PLAN 1. Continue antibiotics. 2. Wean ventilator as tolerated. 3. Nebulizers. 4. Enteral feedings. 5. Continue current cardiac regimen. 6. The overall prognosis is poor. I have discussed this with the family including the durable power of whittling room operator for healthcare. They understand there is a chance the patient could pass away from this. They wish to pursue all measures at this time. Job#: [id number]
[2018-01-31] MEDS: DILTIAZEM HCL IV SOLN 125 MG in SODIUM CHLORIDE 0.9% 100 ML 100 ML IV SCH (16:15)
[2018-01-31] MEDS ORDERED: SODIUM CHLORIDE 0.9% 1000ML 1,000 ML ONE (17:28)
[2018-02-01] VITALS (100 sets, daily range): BP systolic 83–114; BP diastolic 43–83
[2018-02-01] MEDS: LEVALBUTEROL HCL SOLN NEBU 0.63 MG/3 ML NEB INH PRN ×3 (00:05→19:00)
[2018-02-01] MEDS: INSULIN REGULAR, HUMAN 100 UNIT/1 ML 3ML VIAL SQ SCH ×4 (00:37→18:13)
[2018-02-01] MEDS: ENOXAPARIN SOD INJ 60 MG/0.6 ML SYR SC SCH ×2 (00:37→12:35)
[2018-02-01] MEDS: SODIUM CHLORIDE 0.9% 250ML IRRIG IR SCH ×6 (01:30→20:36)
[2018-02-01] MEDS ORDERED: SODIUM CHLORIDE 0.9% 250ML 250 ML ONE (02:40)
[2018-02-01] MEDS: NOREPINEPHRINE 8 MG/D5W 250 ML 250 ML IV PRN (05:56)
[2018-02-01] MEDS: METOCLOPRAMIDE HCL 10 MG TAB NG SCH ×3 (05:59→22:22)
[2018-02-01] MEDS: METOPROLOL TARTRATE INJ 1 MG/ML VIAL IV PRN ×2 (06:00→22:19)
[2018-02-01 06:36] LABS: BASOPHILS % 0.2 % (0.0-1.0); EOSINOPHILS % 0.2 % (0.0-6.0); HEMATOCRIT 32.3 % (34.2-44.1); HEMOGLOBIN 10.8 g/dL (12.0-16.0); LYMPHOCYTES # (AUTO) 1.1 (1.0-3.2); LYMPHOCYTES % 6.5 % (18.0-39.1); MEAN CORPUSCULAR HEMOGLOBIN 29.7 pg (28-32); MEAN CORPUSCULAR HGB CONC 33.4 g/dL (31-35); MEAN CORPUSCULAR VOLUME 88.7 fL (81-99); MONOCYTES # (AUTO) 0.7 (0.2-0.8); MONOCYTES % 3.9 % (4.4-11.3); NEUTROPHILS # (AUTO) 15.4 (2.1-6.9); NEUTROPHILS % 87.2 % (38.7-80.0); PLATELET COUNT 345 x10e3/uL (140-360); RED BLOOD COUNT 3.64 x10e6/uL (3.6-5.1); RED CELL DISTRIBUTION WIDTH 13.9 % (11.7-14.4)
--- NOTE | 2018-02-01 06:43 | Diagnostic Imaging Report ---
EXAM: CHEST SINGLE (PORTABLE), AP 1 view INDICATION: Respiratory failure COMPARISON: AP view of the chest January 31, 2018 FINDINGS: LINES/TUBES: Endotracheal tube terminates 3 cm above the franny. Nasal/orogastric tube courses below the diaphragm. Stable position of right approach PICC. LUNGS: Increasing bilateral airspace opacities. PLEURA: Probable small right pleural effusion. HEART AND MEDIASTINUM: Stable appearance. BONES AND SOFT TISSUES: No acute findings. IMPRESSION: Worsening bilateral airspace opacities. Signed by: Dr. Macey Joy M.D. on 02/01/2018 6:40 AM
[2018-02-01 06:51] LABS: ALANINE AMINOTRANSFERASE 97 IU/L (0-55); ALBUMIN 1.9 g/dL (3.5-5.0); ALBUMIN/GLOBULIN RATIO 0.4 (0.8-2.0); ALKALINE PHOSPHATASE 184 IU/L (40-150); ANION GAP 12.6 mmol/L (8-16); BLOOD UREA NITROGEN 20 mg/dL (7-26); BUN/CREATININE RATIO 24 (6-25); CALCIUM 8.7 mg/dL (8.4-10.2); CARBON DIOXIDE 27 mmol/L (22-29); CHLORIDE 102 mmol/L (98-107); CREATININE, SERUM 0.84 mg/dL (0.57-1.11); EST GLOMERULAR FILTRATION RATE > 60 ML/MIN (60-); GLUCOSE 139 mg/dL (74-118); POTASSIUM 3.6 mmol/L (3.5-5.1); SODIUM 138 mmol/L (136-145)
[2018-02-01] MEDS: PROPOFOL IV EMULSION 10MG/ML 100 ML IV PRN ×2 (06:54→22:23)
[2018-02-01] MEDS: AMIODARONE HCL 200 MG TAB PO SCH (08:27)
[2018-02-01] MEDS: FAMOTIDINE 20 MG TAB PO SCH ×2 (08:27→16:31)
[2018-02-01] MEDS: DOXYCYCLINE 100MG/NS 100ML 100 ML IV SCH ×2 (09:07→22:21)
[2018-02-01] MEDS: CEFEPIME HCL 1 GM VIAL IV SCH ×2 (09:07→22:22)
--- NOTE | 2018-02-01 10:00 | Progress Note ---
DATE: February 01, 2018 TIME: 5:26 a.m. OVERNIGHT: The patient remains intubated on 50% FIO2 oxygen. PHYSICAL EXAMINATION VITAL SIGNS: Have been reviewed. Blood pressure as low as 95/47, pulse rate 115, temperature 101.3. GENERAL: A tired-appearing woman resting in bed intubated. HEENT: ET tube in place. NG tube in place. CARDIOVASCULAR: Normal S1 and S2. LUNGS: Coarse breath sounds throughout. ABDOMEN: Soft and nontender. EXTREMITIES: No edema. SCDs bilaterally. SKIN: Dry. PSYCHIATRIC: Unable to assess. NEUROLOGIC: Sedated. LABS: Reviewed. MEDICATIONS: Reviewed. ASSESSMENT: An 87-year-old woman with: 1. Cfyel-ij-egptkbi diastolic congestive heart failure exacerbation. 2. Atrial fibrillation with rapid ventricular response. 3. Acute respiratory failure. 4. Septic shock. 5. Acute kidney injury in the setting of chronic kidney disease, stage 3. 6. Prediabetes with hemoglobin A1c of 5.9, LDL 53 and triglycerides 284. 7. Urinary tract infection. 8. Hemophilus positive multifocal pneumonia. PLAN 1. Continue vent support. The patient is on 50% FIO2. 2. Continue antibiotics. The patient is currently on IV cefepime and IV vancomycin. Defer to infectious disease regarding management. Cultures positive for Hemophilus in the sputum. 3. Continue pressors. 4. Continue vent support. 5. Continue Lovenox treatment dose and amiodarone for atrial fibrillation. Also, continue digoxin. 6. NG tube in place. We can feed by NG tube. 7. Follow up cultures. 8. Continue Pepcid while on anticoagulation. 9. Monitor closely in the ICU. Family at bedside. Critical care time more than 35 minutes. Job#: [id number] MT
[2018-02-01] MEDS: DILTIAZEM HCL IV SOLN 125 MG in SODIUM CHLORIDE 0.9% 100 ML 100 ML IV SCH (16:15)
[2018-02-01 17:28] LABS: ABG PH 7.41 (7.31-7.41)
[2018-02-01 17:29] LABS: ABG PCO2 43 mmHg (41-51)
[2018-02-01 17:30] LABS: ABG HCO3 27 mmol/L (23-28); ABG PO2 72 mmHg (80-105)
--- NOTE | 2018-02-01 19:35 | Progress Note ---
DATE: PULMONARY/CRITICAL CARE PROGRESS NOTE The patient continues to have fever. She remains on the ventilator. She still has some atrial fibrillation. PHYSICAL EXAMINATION VITAL SIGNS: The patient is afebrile. Blood pressure is 94/63. The O2 saturation is 99%. The pulse is 86. HEENT: No facial swelling or erythema. There is an oral endotracheal tube. There is a nasogastric feeding tube. CARDIAC: Regular rate and rhythm with a normal S1 and S2. There are no murmurs or rubs. LUNGS: Auscultation reveals rhonchi bilaterally. ABDOMEN: Soft and nontender. There is no rebound or guarding. EXTREMITIES: No leg edema or calf tenderness. There is no cyanosis or clubbing. RADIOGRAPHIC DATA: Chest x-ray shows persistent bilateral infiltrates. IMPRESSION 1. Ypejm-eo-upldenh respiratory failure. 2. Haemophilus influenzae with severe sepsis. 3. Chronic obstructive pulmonary disease. 4. Atrial fibrillation with rapid ventricular rate. 5. Moderate protein-calorie malnutrition. PLAN 1. Continue antibiotics. 2. Decrease oxygen to 45% and repeat ABG. 3. Repeat x-ray in the morning. 4. Continue to try and control ventricular rate. 5. Overall prognosis is poor. I have informed the family of this. Job#: [id number]
[2018-02-01] MEDS: LORAZEPAM INJ 2 MG/ML VIAL IV PRN (22:22)
[2018-02-02] VITALS (95 sets, daily range): BP systolic 82–133; BP diastolic 43–92
[2018-02-02] MEDS: SODIUM CHLORIDE 0.9% 250ML IRRIG IR SCH ×6 (00:36→20:45)
[2018-02-02] MEDS: ENOXAPARIN SOD INJ 60 MG/0.6 ML SYR SC SCH ×2 (00:38→10:50)
[2018-02-02] MEDS: INSULIN REGULAR, HUMAN 100 UNIT/1 ML 3ML VIAL SQ SCH ×4 (00:39→18:00)
[2018-02-02] MEDS: LEVALBUTEROL HCL SOLN NEBU 0.63 MG/3 ML NEB INH PRN ×3 (01:40→18:45)
--- NOTE | 2018-02-02 05:53 | Diagnostic Imaging Report ---
EXAM: CHEST SINGLE (PORTABLE), AP 1 view INDICATION: Respiratory failure COMPARISON: AP view of the chest February 01, 2018 FINDINGS: LINES/TUBES: The endotracheal tube terminates approximately 4 cm above the franny. The nasal/orogastric tube courses below the diaphragm out of field of view. LUNGS: Persistent bilateral airspace opacities. PLEURA: Small right pleural effusion. HEART AND MEDIASTINUM: Stable appearance. BONES AND SOFT TISSUES: No acute findings. IMPRESSION: No interval change. Signed by: Dr. Macey Joy M.D. on 02/02/2018 5:50 AM
[2018-02-02 06:31] LABS: BASOPHILS # (AUTO) 0.1 (0.0-0.1); BASOPHILS % 0.3 % (0.0-1.0); EOSINOPHILS # (AUTO) 0.1 (0.0-0.4); EOSINOPHILS % 0.4 % (0.0-6.0); HEMATOCRIT 33.4 % (34.2-44.1); LYMPHOCYTES # (AUTO) 1.3 (1.0-3.2); LYMPHOCYTES % 6.9 % (18.0-39.1); MEAN CORPUSCULAR HEMOGLOBIN 29.4 pg (28-32); MEAN CORPUSCULAR HGB CONC 32.9 g/dL (31-35); MEAN CORPUSCULAR VOLUME 89.3 fL (81-99); MONOCYTES # (AUTO) 0.8 (0.2-0.8); MONOCYTES % 4.3 % (4.4-11.3); NEUTROPHILS # (AUTO) 16.1 (2.1-6.9); NEUTROPHILS % 85.1 % (38.7-80.0); PLATELET COUNT 389 x10e3/uL (140-360); RED BLOOD COUNT 3.74 x10e6/uL (3.6-5.1)
[2018-02-02 06:56] LABS: ALANINE AMINOTRANSFERASE 75 IU/L (0-55); ALBUMIN 1.8 g/dL (3.5-5.0); ALBUMIN/GLOBULIN RATIO 0.4 (0.8-2.0); ALKALINE PHOSPHATASE 196 IU/L (40-150); BLOOD UREA NITROGEN 15 mg/dL (7-26); BUN/CREATININE RATIO 21 (6-25); CALCIUM 9.2 mg/dL (8.4-10.2); CARBON DIOXIDE 27 mmol/L (22-29); CHLORIDE 102 mmol/L (98-107); CREATININE, SERUM 0.73 mg/dL (0.57-1.11); EST GLOMERULAR FILTRATION RATE > 60 ML/MIN (60-); GLUCOSE 157 mg/dL (74-118); SODIUM 137 mmol/L (136-145)
[2018-02-02] MEDS: METOCLOPRAMIDE HCL 10 MG TAB NG SCH ×3 (07:03→21:02)
[2018-02-02 07:45] LABS: LYMPHOCYTES % (MANUAL) 7 % (19-48); MONOCYTES % (MANUAL) 2 % (3.4-9.0); NEUTROPHILS % (MANUAL) 90 % (40-74)
[2018-02-02 07:46] LABS: PLATELET ESTIMATE ADEQUATE; PLATELET MORPHOLOGY COMMENT NORMAL; RBC MORPHOLOGY COMMENT NORMAL
--- NOTE | 2018-02-02 07:58 | Progress Note ---
DATE: February 02, 2018 TIME: 6:15 a.m. OVERNIGHT: No change. Remains intubated. REVIEW OF SYSTEMS: Unobtainable. VITAL SIGNS: Reviewed. PHYSICAL EXAMINATION GENERAL: A tired-appearing woman resting in bed. HEENT: Atraumatic. The patient has an NG tube in place. Has an ET tube in place. CARDIOVASCULAR: Normal S1 and S2. LUNGS: Coarse breath sounds throughout. ABDOMEN: Soft and nontender. EXTREMITIES: SCDs bilaterally. SKIN: Dry. PSYCHIATRIC: Unable to assess. NEUROLOGIC: Sedated. LABS: Reviewed. MEDICATIONS: Reviewed. ASSESSMENT: An 87-year-old woman. 1. Liwkg-js-hqytvxg diastolic congestive heart failure exacerbation. 2. Atrial fibrillation with rapid ventricular response. 3. Acute respiratory failure. 4. Septic shock. 5. Acute kidney injury in the setting of chronic kidney disease, stage 3. 6. Prediabetes with hemoglobin A1c of 5.9, LDL 59 and triglycerides 284. 7. Urinary tract infection. 8. Haemophilus positive multifocal pneumonia. PLAN 1. Continue vent support. 2. Continue antibiotics. 3. Fluids as needed. 4. Pressors as needed. 5. Sedation as needed. 6. Continue Lovenox and amiodarone for AFib. Will also continue digoxin. 7. Discussed with family at bedside. 8. Leukocytosis persists. We will continue antibiotics. 9. Chest x-ray showing no interval change. 10. Follow up infectious disease's recommendations. 11. Continue care in the ICU. Critical care time more than 35 minutes. Prognosis is poor. Job#: [id number]
[2018-02-02] MEDS: FAMOTIDINE 20 MG TAB PO SCH ×2 (08:00→15:33)
[2018-02-02] MEDS: AMIODARONE HCL 200 MG TAB PO SCH (08:02)
[2018-02-02] MEDS: CEFEPIME HCL 1 GM VIAL IV SCH ×2 (08:03→20:58)
[2018-02-02] MEDS: DOXYCYCLINE 100MG/NS 100ML 100 ML IV SCH ×2 (08:56→20:58)
[2018-02-02] MEDS: PROPOFOL IV EMULSION 10MG/ML 100 ML IV PRN ×2 (11:06→21:05)
[2018-02-02] MEDS: DILTIAZEM HCL IV SOLN 125 MG in SODIUM CHLORIDE 0.9% 100 ML 100 ML IV SCH (15:32)
[2018-02-02] MEDS: METOPROLOL TARTRATE INJ 1 MG/ML VIAL IV PRN (18:10)
[2018-02-03] VITALS (94 sets, daily range): BP systolic 85–129; BP diastolic 44–79
[2018-02-03] MEDS: ENOXAPARIN SOD INJ 60 MG/0.6 ML SYR SC SCH ×2 (00:08→12:31)
[2018-02-03] MEDS: INSULIN REGULAR, HUMAN 100 UNIT/1 ML 3ML VIAL SQ SCH ×4 (00:09→18:20)
[2018-02-03] MEDS: SODIUM CHLORIDE 0.9% 250ML IRRIG IR SCH ×6 (00:10→20:08)
[2018-02-03] MEDS: NOREPINEPHRINE 8 MG/D5W 250 ML 250 ML IV PRN (01:35)
[2018-02-03] MEDS: LEVALBUTEROL HCL SOLN NEBU 0.63 MG/3 ML NEB INH PRN ×4 (02:05→19:30)
[2018-02-03] MEDS: METOPROLOL TARTRATE INJ 1 MG/ML VIAL IV PRN ×5 (03:44→22:32)
[2018-02-03] MEDS: METOCLOPRAMIDE HCL 10 MG TAB NG SCH ×3 (05:46→21:16)
[2018-02-03 06:21] LABS: BASOPHILS # (AUTO) 0.1 (0.0-0.1); BASOPHILS % 0.6 % (0.0-1.0); EOSINOPHILS # (AUTO) 0.2 (0.0-0.4); HEMATOCRIT 34.1 % (34.2-44.1); HEMOGLOBIN 11.1 g/dL (12.0-16.0); LYMPHOCYTES # (AUTO) 1.6 (1.0-3.2); MEAN CORPUSCULAR HEMOGLOBIN 29.3 pg (28-32); MEAN CORPUSCULAR HGB CONC 32.6 g/dL (31-35); MONOCYTES # (AUTO) 0.9 (0.2-0.8); MONOCYTES % 5.4 % (4.4-11.3); NEUTROPHILS # (AUTO) 12.5 (2.1-6.9); NEUTROPHILS % 76.4 % (38.7-80.0); PLATELET COUNT 387 x10e3/uL (140-360); RED BLOOD COUNT 3.79 x10e6/uL (3.6-5.1); RED CELL DISTRIBUTION WIDTH 14.1 % (11.7-14.4)
[2018-02-03 06:42] LABS: ALANINE AMINOTRANSFERASE 71 IU/L (0-55); ALBUMIN 1.7 g/dL (3.5-5.0); ALBUMIN/GLOBULIN RATIO 0.4 (0.8-2.0); ALKALINE PHOSPHATASE 214 IU/L (40-150); BLOOD UREA NITROGEN 15 mg/dL (7-26); BUN/CREATININE RATIO 22 (6-25); CALCIUM 9.2 mg/dL (8.4-10.2); CARBON DIOXIDE 24 mmol/L (22-29); CHLORIDE 103 mmol/L (98-107); CREATININE, SERUM 0.67 mg/dL (0.57-1.11); EST GLOMERULAR FILTRATION RATE > 60 ML/MIN (60-); GLUCOSE 179 mg/dL (74-118); SODIUM 137 mmol/L (136-145)
--- NOTE | 2018-02-03 07:39 | Diagnostic Imaging Report ---
EXAM: CHEST SINGLE (PORTABLE) 02/03/2018 at 6:21 AM INDICATION: Edema COMPARISON: 02/02/2018 FINDINGS: Single portable AP view of the chest. Visualized bones, soft tissues and cardiomediastinal silhouette appear unchanged. IMPRESSION: 1. Lines/tubes: Endotracheal tube with its tip at the tracheal bifurcation and should be retracted approximately 1 cm. NG tube extends below the diaphragm. 2. There is no significant interval change with diffuse pulmonary edema present. Signed by: Dr. Henry Chappell DO on 02/03/2018 7:36 AM
[2018-02-03] MEDS: AMIODARONE HCL 200 MG TAB PO SCH (07:50)
[2018-02-03] MEDS: FAMOTIDINE 20 MG TAB PO SCH ×2 (07:50→17:09)
[2018-02-03 08:38] LABS: EOSINOPHILS % (MANUAL) 1 % (0-7); LYMPHOCYTES % (MANUAL) 13 % (19-48); METAMYELOCYTES % (MANUAL) 3 % (0-0); MONOCYTES % (MANUAL) 4 % (3.4-9.0); MYELOCYTES % (MANUAL) 2 % (0-0); NEUTROPHILS % (MANUAL) 77 % (40-74)
[2018-02-03 08:39] LABS: ANISOCYTOSIS SLIGHT; PLATELET ESTIMATE ADEQUATE; PLATELET MORPHOLOGY COMMENT NORMAL; RBC MORPHOLOGY COMMENT NORMAL
[2018-02-03] MEDS: DOXYCYCLINE 100MG/NS 100ML 100 ML IV SCH ×2 (09:07→20:08)
[2018-02-03] MEDS: CEFEPIME HCL 1 GM VIAL IV SCH ×2 (09:07→20:08)
[2018-02-03] MEDS ORDERED: POTASSIUM CHLORIDE 20MEQ/100ML 200 ML IV ONE (12:30)
[2018-02-03] MEDS: PROPOFOL IV EMULSION 10MG/ML 100 ML IV PRN ×2 (14:47→23:39)
[2018-02-03] MEDS ORDERED: FUROSEMIDE INJ 10 MG/ML 4 ML VIAL IV ONE (15:00)
[2018-02-04] VITALS (90 sets, daily range): BP systolic 79–126; BP diastolic 49–95
[2018-02-04] MEDS: ENOXAPARIN SOD INJ 60 MG/0.6 ML SYR SC SCH ×3 (00:07→12:39)
[2018-02-04] MEDS: INSULIN REGULAR, HUMAN 100 UNIT/1 ML 3ML VIAL SQ SCH ×4 (00:07→18:04)
[2018-02-04] MEDS: SODIUM CHLORIDE 0.9% 250ML IRRIG IR SCH ×6 (00:07→20:31)
[2018-02-04] MEDS: LEVALBUTEROL HCL SOLN NEBU 0.63 MG/3 ML NEB INH PRN ×3 (02:10→15:14)
[2018-02-04] MEDS: METOCLOPRAMIDE HCL 10 MG TAB NG SCH ×3 (05:35→22:31)
[2018-02-04 06:00] LABS: BASOPHILS # (AUTO) 0.1 (0.0-0.1); BASOPHILS % 0.6 % (0.0-1.0); EOSINOPHILS # (AUTO) 0.2 (0.0-0.4); EOSINOPHILS % 1.4 % (0.0-6.0); HEMATOCRIT 34.5 % (34.2-44.1); HEMOGLOBIN 11.5 g/dL (12.0-16.0); LYMPHOCYTES # (AUTO) 1.7 (1.0-3.2); LYMPHOCYTES % 12.4 % (18.0-39.1); MEAN CORPUSCULAR HEMOGLOBIN 29.1 pg (28-32); MEAN CORPUSCULAR HGB CONC 33.3 g/dL (31-35); MEAN CORPUSCULAR VOLUME 87.3 fL (81-99); MONOCYTES # (AUTO) 0.8 (0.2-0.8); MONOCYTES % 5.8 % (4.4-11.3); NEUTROPHILS # (AUTO) 10.5 (2.1-6.9); NEUTROPHILS % 74.5 % (38.7-80.0); PLATELET COUNT 388 x10e3/uL (140-360); RED BLOOD COUNT 3.95 x10e6/uL (3.6-5.1)
--- NOTE | 2018-02-04 06:14 | Diagnostic Imaging Report ---
EXAM: CHEST SINGLE (PORTABLE), AP 1 view INDICATION: Respiratory failure COMPARISON: AP view of the chest February 03, 2018 FINDINGS: LINES/TUBES: Stable position of endotracheal tube, nasal/orogastric tube and right approach PICC. LUNGS: Stable diffuse bilateral airspace opacities, likely representing edema. PLEURA: Stable right pleural effusion. HEART AND MEDIASTINUM: Stable appearance. BONES AND SOFT TISSUES: No acute findings. IMPRESSION: No interval change. Signed by: Dr. Macey Joy M.D. on 02/04/2018 6:11 AM
[2018-02-04 06:21] LABS: ALANINE AMINOTRANSFERASE 74 IU/L (0-55); ALBUMIN 1.8 g/dL (3.5-5.0); ALBUMIN/GLOBULIN RATIO 0.4 (0.8-2.0); ALKALINE PHOSPHATASE 193 IU/L (40-150); ANION GAP 12.7 mmol/L (8-16); BLOOD UREA NITROGEN 18 mg/dL (7-26); BUN/CREATININE RATIO 26 (6-25); CALCIUM 9.4 mg/dL (8.4-10.2); CARBON DIOXIDE 29 mmol/L (22-29); CHLORIDE 99 mmol/L (98-107); CREATININE, SERUM 0.69 mg/dL (0.57-1.11); EST GLOMERULAR FILTRATION RATE > 60 ML/MIN (60-); GLUCOSE 178 mg/dL (74-118); POTASSIUM 3.7 mmol/L (3.5-5.1); SODIUM 137 mmol/L (136-145)
--- NOTE | 2018-02-04 06:28 | Progress Note ---
DATE: February 03, 2018 TIME: 6:15 a.m. OVERNIGHT: No events. Remains intubated. REVIEW OF SYSTEMS: Not obtainable. PHYSICAL EXAMINATION VITAL SIGNS: Reviewed. GENERAL: A tired-appearing woman resting in bed. HEENT: ET tube in place. NG tube in place. CARDIOVASCULAR: Normal S1 and S2. LUNGS: Coarse breath sounds. ABDOMEN: Soft and nontender. EXTREMITIES: No edema. SCDs bilaterally. SKIN: Dry. PSYCHIATRIC: Unable to assess. NEUROLOGY: Sedated. LABS: Reviewed. MEDICATIONS: Reviewed. ASSESSMENT: An 87-year-old woman with: 1. Qbbcy-ig-fgqoopd diastolic congestive heart failure exacerbation. 2. Atrial fibrillation with rapid ventricular response. 3. Acute respiratory failure. 4. Septic shock. 5. Acute kidney injury on the setting of chronic kidney disease, stage 3. 6. Prediabetes: Hemoglobin A1c 5.9, LDL 59. 7. Urinary tract infection. 8. Hemophilus positive multifocal pneumonia. PLAN 1. Continue vent support. 2. Continue antibiotics. 3. Continue pressors as needed. 4. Sedation as needed. 5. Continue Lovenox and amiodarone for atrial fibrillation. 6. Heart rate controlled. 7. I have discussed the case with the family at bedside. Continue supportive care. Job#: [id number] CLEMENTE
--- NOTE | 2018-02-04 06:34 | Progress Note ---
DATE: February 04, 2018 TIME: 6:07 a.m. OVERNIGHT: No events. The patient remains intubated. REVIEW OF SYSTEMS: Unobtainable. PHYSICAL EXAMINATION VITAL SIGNS: Reviewed. GENERAL: A tired-appearing woman resting in bed. HEENT: ET tube in place. NG tube in place. CARDIOVASCULAR: Normal S1 and S2. LUNGS: Coarse breath sounds throughout. ABDOMEN: Soft and nontender. EXTREMITIES: No edema. SCDs bilaterally. SKIN: Dry. PSYCHIATRIC: Unable to assess. NEUROLOGIC: Sedated. LABS: Reviewed. MEDICATIONS: Reviewed. ASSESSMENT: An 87-year-old woman with: 1. Dlvgx-wp-cidqlvo diastolic congestive heart failure exacerbation. 2. Atrial fibrillation with rapid ventricular response. 3. Acute respiratory failure. 4. Septic shock. 5. Acute kidney injury in the setting of chronic kidney disease, stage 3. 6. Prediabetes with hemoglobin A1c of 5.9, LDL 59 and triglycerides 284. 7. Urinary tract infection. 8. Hemophilus positive multifocal pneumonia. 9. Acute respiratory distress syndrome. PLAN 1. Continue vent support. 2. Continue antibiotics. 3. Pressors and sedation as needed. 4. Amiodarone and Lovenox for atrial fibrillation. Heart rate somewhat controlled with periods of hypotension. 5. Leukocytosis persistent. Yesterday, was 16,000. 6. Normocytic anemia, stable. Hemoglobin 11.1 yesterday. 7. Acute kidney injury, resolving well. 8. Glucose is controlled. 9. Continue supportive care in the ICU. Job#: [id number] CLEMENTE
[2018-02-04 07:29] LABS: LYMPHOCYTES % (MANUAL) 14 % (19-48); MONOCYTES % (MANUAL) 5 % (3.4-9.0); NEUTROPHILS % (MANUAL) 81 % (40-74); PLATELET ESTIMATE ADEQUATE; PLATELET MORPHOLOGY COMMENT NORMAL; RBC MORPHOLOGY COMMENT NORMAL
[2018-02-04] MEDS ORDERED: DIGOXIN INJ 0.25 MG/ML 2 ML AMP IV NR (08:30)
[2018-02-04] MEDS: AMIODARONE HCL 200 MG TAB PO SCH (09:33)
[2018-02-04] MEDS: CEFEPIME HCL 1 GM VIAL IV SCH ×2 (09:33→20:45)
[2018-02-04] MEDS: DOXYCYCLINE 100MG/NS 100ML 100 ML IV SCH ×2 (09:33→20:46)
[2018-02-04] MEDS: FAMOTIDINE 20 MG TAB PO SCH ×2 (09:33→16:39)
[2018-02-04] MEDS: PROPOFOL IV EMULSION 10MG/ML 100 ML IV PRN ×2 (16:39→23:31)
[2018-02-04] MEDS: METOPROLOL TARTRATE 25 MG TAB PO SCH (17:58)
[2018-02-04 18:14] LABS: ABG PCO2 45 mmHg (41-51); ABG PH 7.47 (7.31-7.41); ABG PO2 74 mmHg (80-105)
[2018-02-04 18:15] LABS: ABG HCO3 32 mmol/L (23-28)
[2018-02-05] VITALS (75 sets, daily range): BP systolic 80–153; BP diastolic 44–102
[2018-02-05] MEDS: INSULIN REGULAR, HUMAN 100 UNIT/1 ML 3ML VIAL SQ SCH ×4 (00:15→18:19)
[2018-02-05] MEDS: SODIUM CHLORIDE 0.9% 250ML IRRIG IR SCH ×6 (01:15→21:10)
[2018-02-05 05:50] LABS: BASOPHILS % 0.3 % (0.0-1.0); EOSINOPHILS # (AUTO) 0.3 (0.0-0.4); EOSINOPHILS % 2.3 % (0.0-6.0); HEMATOCRIT 33.5 % (34.2-44.1); HEMOGLOBIN 10.9 g/dL (12.0-16.0); LYMPHOCYTES # (AUTO) 2.1 (1.0-3.2); LYMPHOCYTES % 17.4 % (18.0-39.1); MEAN CORPUSCULAR HEMOGLOBIN 28.8 pg (28-32); MEAN CORPUSCULAR HGB CONC 32.5 g/dL (31-35); MEAN CORPUSCULAR VOLUME 88.6 fL (81-99); MONOCYTES # (AUTO) 0.8 (0.2-0.8); MONOCYTES % 6.8 % (4.4-11.3); NEUTROPHILS # (AUTO) 8.1 (2.1-6.9); NEUTROPHILS % 68.9 % (38.7-80.0); PLATELET COUNT 392 x10e3/uL (140-360); RED BLOOD COUNT 3.78 x10e6/uL (3.6-5.1); RED CELL DISTRIBUTION WIDTH 14.3 % (11.7-14.4)
[2018-02-05] MEDS: METOCLOPRAMIDE HCL 10 MG TAB NG SCH ×3 (06:08→21:36)
[2018-02-05 06:19] LABS: ALANINE AMINOTRANSFERASE 75 IU/L (0-55); ALBUMIN 1.7 g/dL (3.5-5.0); ALBUMIN/GLOBULIN RATIO 0.3 (0.8-2.0); ALKALINE PHOSPHATASE 166 IU/L (40-150); ANION GAP 11.5 mmol/L (8-16); BLOOD UREA NITROGEN 20 mg/dL (7-26); BUN/CREATININE RATIO 30 (6-25); CARBON DIOXIDE 29 mmol/L (22-29); CHLORIDE 101 mmol/L (98-107); CREATININE, SERUM 0.67 mg/dL (0.57-1.11); EST GLOMERULAR FILTRATION RATE > 60 ML/MIN (60-); GLUCOSE 136 mg/dL (74-118); POTASSIUM 3.5 mmol/L (3.5-5.1); SODIUM 138 mmol/L (136-145)
--- NOTE | 2018-02-05 06:38 | Diagnostic Imaging Report ---
EXAM: CHEST SINGLE (PORTABLE), AP 1 view INDICATION: Altered mental status COMPARISON: AP view of the chest February 04, 2018 FINDINGS: LINES/TUBES: Stable position of endotracheal tube and nasal/orogastric tube. Stable right approach PICC. LUNGS: Diffuse bilateral airspace opacities, greatest on the right. PLEURA: Right pleural effusion, stable HEART AND MEDIASTINUM: Stable BONES AND SOFT TISSUES: No acute findings. IMPRESSION: No significant interval change. Signed by: Dr. Macey Joy M.D. on 02/05/2018 6:35 AM
[2018-02-05] MEDS: PROPOFOL IV EMULSION 10MG/ML 100 ML IV PRN (08:05)
[2018-02-05] MEDS: NOREPINEPHRINE INJ 4MG/4ML 8 MG in SODIUM CHLORIDE 0.9% 250ML 250 ML IV PRN ×2 (08:05→19:00)
[2018-02-05] MEDS: AMIODARONE HCL 200 MG TAB PO SCH (08:54)
[2018-02-05] MEDS: DOXYCYCLINE 100MG/NS 100ML 100 ML IV SCH ×2 (08:54→21:10)
[2018-02-05] MEDS: CEFEPIME HCL 1 GM VIAL IV SCH ×2 (08:54→21:10)
[2018-02-05] MEDS: FAMOTIDINE 20 MG TAB PO SCH ×2 (08:54→15:32)
[2018-02-05] MEDS: METOPROLOL TARTRATE 25 MG TAB PO SCH (08:55)
[2018-02-05] MEDS: FUROSEMIDE INJ 10 MG/ML 4 ML VIAL IV SCH ×2 (09:00→21:10)
[2018-02-05 09:04] LABS: LYMPHOCYTES % (MANUAL) 9 % (19-48); MONOCYTES % (MANUAL) 2 % (3.4-9.0); NEUTROPHILS % (MANUAL) 89 % (40-74); PLATELET ESTIMATE SLIGHTLY INCREASED; PLATELET MORPHOLOGY COMMENT NORMAL
[2018-02-05 09:05] LABS: RBC MORPHOLOGY COMMENT NORMAL
--- NOTE | 2018-02-05 12:41 | Progress Note ---
DATE: PULMONARY/CRITICAL CARE PROGRESS NOTE SUBJECTIVE: The patient is on CPAP today for about 45 minutes. Her respiratory rate is 30 to 35, and the tidal volumes are 200 to 300 mL. This is a slight improvement since yesterday. She remains on a low dose of Levophed. She also has Ativan as needed and propofol. OBJECTIVE VITAL SIGNS: The patient is afebrile. She is on assist control. She has antibiotics, Levophed at 5 to 10, and she has propofol. She wakes up when the sedation is held. HEENT: Examination shows no facial swelling or erythema. There is an oroendotracheal tube. She does have some congestion and rhonchi. She is not having any wheezing. She does not have any chest pain. CARDIAC: She has a regular rate and rhythm with a normal S1 and S2. ABDOMEN: Soft, nontender. She has no rebound or guarding. She has no leg edema or calf tenderness. IMPRESSION 1. Kgovg-sw-elgwftt respiratory failure. 2. Haemophilus pneumonia with septic shock. 3. Atrial fibrillation with a rapid ventricular response. 4. Underlying chronic obstructive pulmonary disease related to a long-standing history of cooking with firewood. 5. Transaminitis. PLAN 1. We will begin Lasix 40 mg IV twice a day. 2. We will repeat the CPAP trial again tomorrow and hope for extubation. 3. Repeat chest x-ray in the morning. 4. Continue current antibiotics. Job#: [id number] EV
[2018-02-05] MEDS: METOPROLOL TARTRATE INJ 1 MG/ML VIAL IV PRN (15:38)
[2018-02-05] MEDS: LEVALBUTEROL HCL SOLN NEBU 0.63 MG/3 ML NEB INH PRN (16:28)
[2018-02-05] MEDS: ENOXAPARIN SOD INJ 60 MG/0.6 ML SYR SC SCH (21:10)
[2018-02-06] VITALS (79 sets, daily range): BP systolic 77–175; BP diastolic 44–110
[2018-02-06] MEDS: METOPROLOL TARTRATE 25 MG TAB PO SCH ×5 (00:05→23:54)
[2018-02-06] MEDS: SODIUM CHLORIDE 0.9% 250ML IRRIG IR SCH ×6 (00:09→20:56)
[2018-02-06] MEDS: INSULIN REGULAR, HUMAN 100 UNIT/1 ML 3ML VIAL SQ SCH ×5 (00:09→23:55)
[2018-02-06] MEDS: PROPOFOL IV EMULSION 10MG/ML 100 ML IV PRN ×2 (03:25→19:46)
[2018-02-06] MEDS: METOCLOPRAMIDE HCL 10 MG TAB NG SCH ×3 (05:30→22:10)
[2018-02-06 06:11] LABS: BASOPHILS % 0.2 % (0.0-1.0); EOSINOPHILS # (AUTO) 0.2 (0.0-0.4); EOSINOPHILS % 1.8 % (0.0-6.0); HEMATOCRIT 33.9 % (34.2-44.1); LYMPHOCYTES # (AUTO) 1.4 (1.0-3.2); LYMPHOCYTES % 15.8 % (18.0-39.1); MEAN CORPUSCULAR HEMOGLOBIN 29.3 pg (28-32); MEAN CORPUSCULAR HGB CONC 32.4 g/dL (31-35); MEAN CORPUSCULAR VOLUME 90.2 fL (81-99); MONOCYTES # (AUTO) 0.7 (0.2-0.8); MONOCYTES % 7.5 % (4.4-11.3); NEUTROPHILS # (AUTO) 6.6 (2.1-6.9); NEUTROPHILS % 72.9 % (38.7-80.0); PLATELET COUNT 370 x10e3/uL (140-360); RED BLOOD COUNT 3.76 x10e6/uL (3.6-5.1); RED CELL DISTRIBUTION WIDTH 14.5 % (11.7-14.4)
--- NOTE | 2018-02-06 06:17 | Diagnostic Imaging Report ---
EXAM: CHEST SINGLE (PORTABLE), AP 1 view INDICATION: Respiratory failure COMPARISON: AP view of the chest February 05, 2018 FINDINGS: LINES/TUBES: Stable endotracheal tube, nasogastric tube and right PICC LUNGS: Stable bilateral airspace opacities. PLEURA: Stable right pleural effusion HEART AND MEDIASTINUM: Stable BONES AND SOFT TISSUES: No acute findings. IMPRESSION: No interval change Signed by: Dr. Macey Joy M.D. on 02/06/2018 6:13 AM
[2018-02-06 06:35] LABS: ALANINE AMINOTRANSFERASE 56 IU/L (0-55); ALBUMIN 1.8 g/dL (3.5-5.0); ALBUMIN/GLOBULIN RATIO 0.4 (0.8-2.0); ALKALINE PHOSPHATASE 140 IU/L (40-150); ANION GAP 12.1 mmol/L (8-16); BLOOD UREA NITROGEN 23 mg/dL (7-26); BUN/CREATININE RATIO 32 (6-25); CALCIUM 8.9 mg/dL (8.4-10.2); CARBON DIOXIDE 32 mmol/L (22-29); CHLORIDE 99 mmol/L (98-107); CREATININE, SERUM 0.71 mg/dL (0.57-1.11); EST GLOMERULAR FILTRATION RATE > 60 ML/MIN (60-); GLUCOSE 134 mg/dL (74-118); POTASSIUM 3.1 mmol/L (3.5-5.1); SODIUM 140 mmol/L (136-145)
[2018-02-06] MEDS: FUROSEMIDE INJ 10 MG/ML 4 ML VIAL IV SCH ×2 (09:22→20:56)
[2018-02-06] MEDS: AMIODARONE HCL 200 MG TAB PO SCH (09:22)
[2018-02-06] MEDS: DOXYCYCLINE 100MG/NS 100ML 100 ML IV SCH ×2 (09:22→20:56)
[2018-02-06] MEDS: CEFEPIME HCL 1 GM VIAL IV SCH ×2 (09:22→20:56)
[2018-02-06] MEDS: FAMOTIDINE 20 MG TAB PO SCH ×2 (09:22→16:47)
[2018-02-06] MEDS: ENOXAPARIN SOD INJ 60 MG/0.6 ML SYR SC SCH ×2 (09:22→20:56)
[2018-02-06] MEDS ORDERED: POTASSIUM CHLORIDE 20MEQ/15ML UDC NG SCH (09:45)
[2018-02-06] MEDS: METOPROLOL TARTRATE INJ 1 MG/ML VIAL IV PRN (10:51)
[2018-02-06 10:56] LABS: ABG HCO3 35 mmol/L (23-28); ABG PCO2 46 mmHg (41-51); ABG PH 7.48 (7.31-7.41); ABG PO2 58 mmHg (80-105)
[2018-02-06] MEDS ORDERED: METHYLPREDNISOLONE SOD SUCC 125 MG/2ML VIAL IV SCH (11:30)
--- NOTE | 2018-02-06 13:37 | Diagnostic Imaging Report ---
EXAM: XR CHEST 1 VIEW DATE: 02/06/2018 1:15 PM INDICATION: Intubation COMPARISON: Same day 05 FINDINGS: Lines and Tubes: ET tube with tip likely at franny. NG tube courses past the inferior field of view. Right subclavian catheter or PICC line with tip not well seen. Heart and Mediastinum: No acute findings. Lungs and Pleura: Extensive asymmetric to the right airspace opacities. Bones and Soft Tissues: No acute findings. IMPRESSION: 1. Tip of ET tube likely just above franny. Retraction 1 to 2 cm recommended. 2. Extensive asymmetric to the right airspace opacity suggesting edema and/or pneumonia. Signed by: Dr. Toney Koo MD on 02/06/2018 1:33 PM
[2018-02-06 15:06] LABS: ABG PH 7.25 (7.31-7.41)
[2018-02-06 15:07] LABS: ABG HCO3 37 mmol/L (23-28); ABG PCO2 84 mmHg (41-51); ABG PO2 66 mmHg (80-105)
[2018-02-06] MEDS ORDERED: BENZOCAINE 20% SPR 60 ML CAN MT ONE (15:45)
--- NOTE | 2018-02-06 16:16 | Operative Report ---
DATE OF PROCEDURE: PROCEDURE: Endotracheal intubation. INDICATIONS: Worsening respiratory distress. PROCEDURE: The patient was placed in the supine position, and preoxygenated with 100% oxygen. Saturation was increased to 98%. The upper airway was anesthetized with Hurricane spray. The patient received etomidate 14 mg. A 30 was used to visualize the glottis. Glottis was easily visualized. A 7.5 endotracheal tube was placed through the glottis on the first attempt. There was good CO2 return. There were equal breath sounds bilaterally. The blood pressure and the oxygen saturation remained stable throughout the procedure. COMPLICATIONS: None. Job#: [id number] CLEMENTE
[2018-02-07] VITALS (100 sets, daily range): BP systolic 81–149; BP diastolic 45–97
[2018-02-07] MEDS: SODIUM CHLORIDE 0.9% 250ML IRRIG IR SCH ×6 (00:04→20:30)
[2018-02-07] MEDS: METOPROLOL TARTRATE 25 MG TAB PO SCH ×3 (05:51→17:20)
[2018-02-07] MEDS: METOCLOPRAMIDE HCL 10 MG TAB NG SCH ×3 (05:51→20:30)
[2018-02-07] MEDS: INSULIN REGULAR, HUMAN 100 UNIT/1 ML 3ML VIAL SQ SCH ×3 (05:52→18:26)
--- NOTE | 2018-02-07 06:15 | Diagnostic Imaging Report ---
EXAM: CHEST SINGLE (PORTABLE), AP 1 view INDICATION: Respiratory failure COMPARISON: AP view of the chest February 06, 2018 FINDINGS: LINES/TUBES: Stable endotracheal tube, nasogastric tube and right approach PICC LUNGS: Pulmonary edema with increased opacity in the right lung PLEURA: Large right pleural effusion HEART AND MEDIASTINUM: Stable cardiac enlargement and prominence of the right paratracheal stripe BONES AND SOFT TISSUES: No acute findings. IMPRESSION: No interval change Signed by: Dr. Macey Joy M.D. on 02/07/2018 6:12 AM
[2018-02-07 06:30] LABS: BASOPHILS % 0.1 % (0.0-1.0); HEMATOCRIT 34.5 % (34.2-44.1); HEMOGLOBIN 11.2 g/dL (12.0-16.0); LYMPHOCYTES # (AUTO) 0.9 (1.0-3.2); LYMPHOCYTES % 7.8 % (18.0-39.1); MEAN CORPUSCULAR HEMOGLOBIN 29.2 pg (28-32); MEAN CORPUSCULAR HGB CONC 32.5 g/dL (31-35); MEAN CORPUSCULAR VOLUME 89.8 fL (81-99); MONOCYTES # (AUTO) 0.7 (0.2-0.8); MONOCYTES % 5.5 % (4.4-11.3); NEUTROPHILS # (AUTO) 10.3 (2.1-6.9); NEUTROPHILS % 85.3 % (38.7-80.0); PLATELET COUNT 457 x10e3/uL (140-360); RED BLOOD COUNT 3.84 x10e6/uL (3.6-5.1); RED CELL DISTRIBUTION WIDTH 14.3 % (11.7-14.4)
[2018-02-07 07:05] LABS: ALANINE AMINOTRANSFERASE 53 IU/L (0-55); ALBUMIN 2.1 g/dL (3.5-5.0); ALBUMIN/GLOBULIN RATIO 0.4 (0.8-2.0); ALKALINE PHOSPHATASE 127 IU/L (40-150); ANION GAP 11.9 mmol/L (8-16); BLOOD UREA NITROGEN 30 mg/dL (7-26); BUN/CREATININE RATIO 37 (6-25); CALCIUM 9.4 mg/dL (8.4-10.2); CARBON DIOXIDE 32 mmol/L (22-29); CHLORIDE 100 mmol/L (98-107); CREATININE, SERUM 0.81 mg/dL (0.57-1.11); EST GLOMERULAR FILTRATION RATE > 60 ML/MIN (60-); GLUCOSE 219 mg/dL (74-118); POTASSIUM 3.9 mmol/L (3.5-5.1); SODIUM 140 mmol/L (136-145)
[2018-02-07] MEDS: LEVALBUTEROL HCL SOLN NEBU 0.63 MG/3 ML NEB INH PRN ×2 (08:15→19:30)
[2018-02-07] MEDS: FAMOTIDINE 20 MG TAB PO SCH ×2 (08:29→17:20)
[2018-02-07] MEDS: CEFEPIME HCL 1 GM VIAL IV SCH (08:31)
[2018-02-07] MEDS: DOXYCYCLINE 100MG/NS 100ML 100 ML IV SCH (08:31)
[2018-02-07] MEDS: AMIODARONE HCL 200 MG TAB PO SCH (08:31)
[2018-02-07] MEDS: ENOXAPARIN SOD INJ 60 MG/0.6 ML SYR SC SCH ×2 (08:31→20:30)
[2018-02-07] MEDS: FUROSEMIDE INJ 10 MG/ML 4 ML VIAL IV SCH (08:43)
[2018-02-07] MEDS: PROPOFOL IV EMULSION 10MG/ML 100 ML IV PRN ×2 (08:48→21:04)
[2018-02-07] MEDS: CEFTRIAXONE SOD 1 GM VIAL IV SCH (12:59)
[2018-02-07] MEDS: NOREPINEPHRINE INJ 4MG/4ML 8 MG in SODIUM CHLORIDE 0.9% 250ML 250 ML IV PRN (13:00)
[2018-02-07 17:05] LABS: ABG HCO3 37 mmol/L (23-28); ABG PCO2 47 mmHg (41-51); ABG PO2 60 mmHg (80-105)
[2018-02-07] MEDS ORDERED: SUCCINYLCHOLINE CHLORIDE 20 MG/ML 10ML VIAL ONE (17:57)
[2018-02-07] MEDS ORDERED: ETOMIDATE 2 MG/ML 10 ML INJ IV ONE (17:57)
[2018-02-08] VITALS (88 sets, daily range): BP systolic 79–140; BP diastolic 47–98
[2018-02-08] MEDS: METOPROLOL TARTRATE 25 MG TAB PO SCH ×5 (00:01→23:29)
[2018-02-08] MEDS: INSULIN REGULAR, HUMAN 100 UNIT/1 ML 3ML VIAL SQ SCH ×5 (00:17→23:20)
[2018-02-08] MEDS: CEFTRIAXONE SOD 1 GM VIAL IV SCH ×2 (00:23→13:17)
[2018-02-08] MEDS: SODIUM CHLORIDE 0.9% 250ML IRRIG IR SCH ×6 (00:23→20:19)
[2018-02-08] MEDS: METOCLOPRAMIDE HCL 10 MG TAB NG SCH ×3 (05:35→21:06)
--- NOTE | 2018-02-08 05:53 | Diagnostic Imaging Report ---
EXAM: CHEST SINGLE (PORTABLE), AP 1 view INDICATION: Respiratory failure COMPARISON: Previous day FINDINGS: LINES/TUBES: Stable endotracheal tube, nasogastric tube and right approach PICC LUNGS/PLEURA: Stable large right effusion with associated atelectasis/right lung opacity. Possible underlying edema. HEART AND MEDIASTINUM: Stable cardiac enlargement and prominence of the right paratracheal stripe IMPRESSION: No interval change Signed by: Dr Louisa Eng MD on 02/08/2018 5:49 AM
[2018-02-08 06:12] LABS: BASOPHILS % 0.3 % (0.0-1.0); EOSINOPHILS # (AUTO) 0.1 (0.0-0.4); EOSINOPHILS % 1.4 % (0.0-6.0); HEMATOCRIT 33.3 % (34.2-44.1); HEMOGLOBIN 10.9 g/dL (12.0-16.0); LYMPHOCYTES # (AUTO) 1.8 (1.0-3.2); LYMPHOCYTES % 19.6 % (18.0-39.1); MEAN CORPUSCULAR HEMOGLOBIN 29.5 pg (28-32); MEAN CORPUSCULAR HGB CONC 32.7 g/dL (31-35); MONOCYTES # (AUTO) 0.7 (0.2-0.8); MONOCYTES % 7.4 % (4.4-11.3); NEUTROPHILS # (AUTO) 6.5 (2.1-6.9); NEUTROPHILS % 70.5 % (38.7-80.0); PLATELET COUNT 388 x10e3/uL (140-360); RED CELL DISTRIBUTION WIDTH 14.9 % (11.7-14.4)
[2018-02-08 06:46] LABS: ALANINE AMINOTRANSFERASE 47 IU/L (0-55); ALBUMIN 2.2 g/dL (3.5-5.0); ALBUMIN/GLOBULIN RATIO 0.5 (0.8-2.0); ALKALINE PHOSPHATASE 120 IU/L (40-150); ANION GAP 13.7 mmol/L (8-16); BLOOD UREA NITROGEN 32 mg/dL (7-26); BUN/CREATININE RATIO 44 (6-25); CALCIUM 9.2 mg/dL (8.4-10.2); CARBON DIOXIDE 31 mmol/L (22-29); CHLORIDE 103 mmol/L (98-107); CREATININE, SERUM 0.73 mg/dL (0.57-1.11); EST GLOMERULAR FILTRATION RATE > 60 ML/MIN (60-); GLUCOSE 148 mg/dL (74-118); POTASSIUM 3.7 mmol/L (3.5-5.1); SODIUM 144 mmol/L (136-145)
[2018-02-08] MEDS: LEVALBUTEROL HCL SOLN NEBU 0.63 MG/3 ML NEB INH PRN ×3 (07:45→19:35)
[2018-02-08] MEDS: FAMOTIDINE 20 MG TAB PO SCH ×2 (08:46→16:30)
[2018-02-08] MEDS: ENOXAPARIN SOD INJ 60 MG/0.6 ML SYR SC SCH ×2 (08:47→20:20)
[2018-02-08] MEDS: AMIODARONE HCL 200 MG TAB PO SCH (08:47)
[2018-02-08] MEDS: FUROSEMIDE INJ 10 MG/ML 4 ML VIAL IV SCH (08:47)
[2018-02-08] MEDS: PROPOFOL IV EMULSION 10MG/ML 100 ML IV PRN (08:48)
[2018-02-08] MEDS ORDERED: LACTULOSE SYRUP 20 GM/30 ML UDC PO PRN ×2 (18:30→18:45)
[2018-02-08] MEDS: METOPROLOL TARTRATE INJ 1 MG/ML VIAL IV PRN (23:29)
[2018-02-09] VITALS (94 sets, daily range): BP systolic 78–167; BP diastolic 53–115
[2018-02-09] MEDS: CEFTRIAXONE SOD 1 GM VIAL IV SCH ×2 (00:12→14:12)
[2018-02-09] MEDS: SODIUM CHLORIDE 0.9% 250ML IRRIG IR SCH ×6 (00:12→20:28)
[2018-02-09] MEDS: METOCLOPRAMIDE HCL 10 MG TAB NG SCH ×3 (06:00→21:49)
[2018-02-09] MEDS: METOPROLOL TARTRATE 25 MG TAB PO SCH ×4 (06:00→23:51)
[2018-02-09 06:03] LABS: BASOPHILS % 0.4 % (0.0-1.0); EOSINOPHILS # (AUTO) 0.2 (0.0-0.4); EOSINOPHILS % 1.7 % (0.0-6.0); HEMATOCRIT 35.9 % (34.2-44.1); HEMOGLOBIN 11.6 g/dL (12.0-16.0); LYMPHOCYTES # (AUTO) 1.3 (1.0-3.2); LYMPHOCYTES % 12.6 % (18.0-39.1); MEAN CORPUSCULAR HEMOGLOBIN 29.7 pg (28-32); MEAN CORPUSCULAR HGB CONC 32.3 g/dL (31-35); MEAN CORPUSCULAR VOLUME 91.8 fL (81-99); MONOCYTES # (AUTO) 0.7 (0.2-0.8); MONOCYTES % 6.3 % (4.4-11.3); NEUTROPHILS # (AUTO) 8.3 (2.1-6.9); NEUTROPHILS % 78.2 % (38.7-80.0); PLATELET COUNT 372 x10e3/uL (140-360); RED BLOOD COUNT 3.91 x10e6/uL (3.6-5.1); RED CELL DISTRIBUTION WIDTH 15.2 % (11.7-14.4)
[2018-02-09] MEDS: INSULIN REGULAR, HUMAN 100 UNIT/1 ML 3ML VIAL SQ SCH ×3 (06:19→18:03)
[2018-02-09 06:25] LABS: ALANINE AMINOTRANSFERASE 51 IU/L (0-55); ALBUMIN 2.4 g/dL (3.5-5.0); ALBUMIN/GLOBULIN RATIO 0.5 (0.8-2.0); ALKALINE PHOSPHATASE 115 IU/L (40-150); ANION GAP 13.4 mmol/L (8-16); BLOOD UREA NITROGEN 28 mg/dL (7-26); BUN/CREATININE RATIO 38 (6-25); CALCIUM 9.4 mg/dL (8.4-10.2); CARBON DIOXIDE 31 mmol/L (22-29); CHLORIDE 104 mmol/L (98-107); CREATININE, SERUM 0.73 mg/dL (0.57-1.11); EST GLOMERULAR FILTRATION RATE > 60 ML/MIN (60-); GLUCOSE 172 mg/dL (74-118); POTASSIUM 3.4 mmol/L (3.5-5.1); SODIUM 145 mmol/L (136-145)
[2018-02-09] MEDS: FAMOTIDINE 20 MG TAB PO SCH ×2 (07:30→16:30)
--- NOTE | 2018-02-09 07:41 | Diagnostic Imaging Report ---
PROCEDURE: A single AP view of the chest. COMPARISON: Portable chest 02/08/2018. INDICATIONS: RESPIRATORY FAILURE FINDINGS: Lines/tubes: Endotracheal catheter is present with the tip projecting over the expected region of the trachea, positioned 2 cm from the franny. Enteric feeding catheter is positioned with the tip extending below the inferior margin of the examination, likely within the gastric body. Right peripherally inserted central venous catheter is present with the tip projecting over the expected region of the right subclavian vein. Radiopaque catheters, likely representing external monitoring equipment, project over the upper mediastinum. Lungs: Bilateral perihilar opacifications. No parenchymal mass. Pleura: Moderate right pleural effusion. No pneumothorax. Heart and mediastinum: The heart and the mediastinum are unremarkable. Bones: No acute bony abnormality. Degenerative changes of the thoracic spine. IMPRESSION: Bilateral perihilar opacifications likely represent pulmonary edema. Moderate right pleural effusion. Dictated by: Royce Bragg M.D. on 02/09/2018 at 7:42 Electronically approved by: Royce Bragg M.D. on 02/09/2018 at 7:42
[2018-02-09] MEDS ORDERED: METHYLPREDNISOLONE SOD SUCC 40 MG/ML VIAL IV ONE (08:45)
[2018-02-09] MEDS ORDERED: AMIODARONE HCL 360MG 200 ML IV SCH ×2 (09:00→12:00)
[2018-02-09] MEDS: AMIODARONE HCL 200 MG TAB PO SCH (09:00)
[2018-02-09] MEDS ORDERED: AMIODARONE HCL 150MG 100 ML IV SCH (09:00)
[2018-02-09] MEDS: FUROSEMIDE INJ 10 MG/ML 4 ML VIAL IV SCH ×2 (09:30→20:28)
[2018-02-09] MEDS: AMIODARONE 900MG 500 ML IV SCH (09:30)
[2018-02-09] MEDS: ENOXAPARIN SOD INJ 60 MG/0.6 ML SYR SC SCH ×2 (09:30→20:28)
[2018-02-09] MEDS ORDERED: POTASSIUM CHLORIDE 20MEQ/15ML UDC NG ONE (15:15)
[2018-02-09] MEDS: LEVALBUTEROL HCL SOLN NEBU 0.63 MG/3 ML NEB INH PRN (19:20)
[2018-02-09] MEDS: PROPOFOL IV EMULSION 10MG/ML 100 ML IV PRN (23:21)
[2018-02-10] VITALS (95 sets, daily range): BP systolic 89–132; BP diastolic 47–100
[2018-02-10] MEDS: INSULIN REGULAR, HUMAN 100 UNIT/1 ML 3ML VIAL SQ SCH ×5 (00:35→23:55)
[2018-02-10] MEDS: SODIUM CHLORIDE 0.9% 250ML IRRIG IR SCH ×6 (00:48→20:21)
[2018-02-10] MEDS: CEFTRIAXONE SOD 1 GM VIAL IV SCH ×3 (00:48→23:55)
[2018-02-10] MEDS: METOCLOPRAMIDE HCL 10 MG TAB NG SCH ×3 (05:45→22:00)
[2018-02-10] MEDS: METOPROLOL TARTRATE 25 MG TAB PO SCH ×4 (05:45→23:26)
[2018-02-10 06:09] LABS: BASOPHILS % 0.4 % (0.0-1.0); EOSINOPHILS # (AUTO) 0.1 (0.0-0.4); EOSINOPHILS % 0.8 % (0.0-6.0); HEMATOCRIT 35.5 % (34.2-44.1); HEMOGLOBIN 11.5 g/dL (12.0-16.0); LYMPHOCYTES # (AUTO) 1.6 (1.0-3.2); LYMPHOCYTES % 14.6 % (18.0-39.1); MEAN CORPUSCULAR HEMOGLOBIN 29.6 pg (28-32); MEAN CORPUSCULAR HGB CONC 32.4 g/dL (31-35); MEAN CORPUSCULAR VOLUME 91.3 fL (81-99); MONOCYTES # (AUTO) 0.7 (0.2-0.8); MONOCYTES % 6.4 % (4.4-11.3); NEUTROPHILS # (AUTO) 8.7 (2.1-6.9); NEUTROPHILS % 77.3 % (38.7-80.0); PLATELET COUNT 430 x10e3/uL (140-360); RED BLOOD COUNT 3.89 x10e6/uL (3.6-5.1); RED CELL DISTRIBUTION WIDTH 15.3 % (11.7-14.4)
[2018-02-10 06:33] LABS: INR 1.29; PROTHROMBIN TIME 15.1 seconds (11.9-14.5)
[2018-02-10 06:40] LABS: ANION GAP 14.6 mmol/L (8-16); CREATININE, SERUM 0.92 mg/dL (0.57-1.11); MAGNESIUM 2.1 MG/DL (1.3-2.1); POTASSIUM 4.6 mmol/L (3.5-5.1)
[2018-02-10] MEDS: LEVALBUTEROL HCL SOLN NEBU 0.63 MG/3 ML NEB INH PRN ×3 (07:25→19:25)
--- NOTE | 2018-02-10 07:54 | Consultation ---
DATE OF CONSULTATION: February 10, 2018 HOSPITAL CONSULTATION HISTORY OF PRESENT ILLNESS: I was kindly asked to see this 87-year-old woman for evaluation of possible tracheostomy placement. The patient has required prolonged ventilator support, and is anticipated she will continue to need ventilator support. Her history of present illness, past medical history and past surgical history was reviewed in detail in the chart. PHYSICAL EXAMINATION NECK: There is no abnormal neck anatomy noted. The patient is intubated and on the ventilator. ASSESSMENT: Respiratory failure. PLAN: Will stand by for tracheostomy based on family's decision regarding long-term care. Job#: [id number] CLEMENTE
[2018-02-10] MEDS: PROPOFOL IV EMULSION 10MG/ML 100 ML IV PRN (09:48)
[2018-02-10] MEDS: FAMOTIDINE 20 MG TAB PO SCH ×2 (10:36→17:13)
[2018-02-10] MEDS: ENOXAPARIN SOD INJ 60 MG/0.6 ML SYR SC SCH ×2 (10:36→20:21)
[2018-02-10] MEDS: AMIODARONE HCL 200 MG TAB PO SCH (10:36)
[2018-02-10] MEDS: FUROSEMIDE INJ 10 MG/ML 4 ML VIAL IV SCH ×2 (10:36→20:21)
[2018-02-10] MEDS: AMIODARONE 900MG 500 ML IV SCH (10:42)
--- NOTE | 2018-02-10 10:55 | Diagnostic Imaging Report ---
PROCEDURE: CHEST XRAY POST PROCEDURE COMPARISON: Portable chest 02/09/2018. INDICATIONS: POST THORACENTESIS FINDINGS: Lines: No change in proper position of the lines and support catheters. LUNGS: No consolidations or edema. PLEURA: Decrease of the right pleural effusion. No pneumothorax. HEART \T\ MEDIASTINUM: The heart is within normal size-limits. BONES \T\ SOFT TISSUES: No acute findings. CONCLUSION: Decrease of the right pleural effusion, status post right thoracentesis. No pneumothorax. Dictated by: Royce Bragg M.D. on 02/10/2018 at 10:56 Electronically approved by: Royce Bragg M.D. on 02/10/2018 at 10:56
[2018-02-10 10:56] LABS: BODY FLUID APPEARANCE SL.CLOUDY; BODY FLUID COLOR YELLOW
[2018-02-10 10:57] LABS: RBC,BODY FLUID 1397 cells/uL; WBC,BODY FLUID 192 cells/uL
[2018-02-10 10:58] LABS: BODY FLUID TYPE PLEURAL
--- NOTE | 2018-02-10 11:09 | Diagnostic Imaging Report ---
PROCEDURE: ULTRASOUND GUIDED THORACENTESIS COMPARISON: Portable chest 02/09/2018. INDICATIONS:thoracentesis for pleural effusion FINDINGS: After informed consent was obtained, the patient was placed in the sitting position and preliminary ultrasound of the posterior chest identified a safe route into the right pleural effusion. The overlying skin was prepped and draped in usual sterile fashion. Lidocaine 1% was used for local anesthesia. Under ultrasound guidance, a centesis needle was advanced into the pleural fluid and 1350 cc were aspirated. The patient tolerated the procedure well and there were no immediate post-procedural complications. A post-thoracentesis chest radiograph will be obtained. CONCLUSION: Uncomplicated ultrasound-guided right thoracentesis with removal of 1350 cc. Dictated by: Royce Bragg M.D. on 02/10/2018 at 11:10 Electronically approved by: Royce Bragg M.D. on 02/10/2018 at 11:10
[2018-02-10 14:19] LABS: NEUTROPHILS,BODY FLUID 15 %
[2018-02-10 14:20] LABS: LYMPHOCYTES,BODY FLUID 73 %; MONO/MACROPHG,BODY FLUID 5 %; OTHER CELLS,BODY FLUID 7 %
[2018-02-11] VITALS (81 sets, daily range): BP systolic 68–123; BP diastolic 36–83
[2018-02-11] MEDS: SODIUM CHLORIDE 0.9% 250ML IRRIG IR SCH ×6 (01:00→22:06)
[2018-02-11] MEDS: INSULIN REGULAR, HUMAN 100 UNIT/1 ML 3ML VIAL SQ SCH ×3 (05:29→17:44)
[2018-02-11] MEDS: METOPROLOL TARTRATE 25 MG TAB PO SCH ×3 (05:29→17:44)
[2018-02-11] MEDS: METOCLOPRAMIDE HCL 10 MG TAB NG SCH ×3 (05:38→22:06)
[2018-02-11 06:20] LABS: BASOPHILS % 0.4 % (0.0-1.0); EOSINOPHILS # (AUTO) 0.1 (0.0-0.4); HEMATOCRIT 33.5 % (34.2-44.1); HEMOGLOBIN 11.1 g/dL (12.0-16.0); LYMPHOCYTES # (AUTO) 1.7 (1.0-3.2); LYMPHOCYTES % 19.2 % (18.0-39.1); MEAN CORPUSCULAR HEMOGLOBIN 29.8 pg (28-32); MEAN CORPUSCULAR HGB CONC 33.1 g/dL (31-35); MEAN CORPUSCULAR VOLUME 89.8 fL (81-99); MONOCYTES # (AUTO) 0.5 (0.2-0.8); MONOCYTES % 5.6 % (4.4-11.3); NEUTROPHILS # (AUTO) 6.5 (2.1-6.9); NEUTROPHILS % 73.5 % (38.7-80.0); PLATELET COUNT 358 x10e3/uL (140-360); RED BLOOD COUNT 3.73 x10e6/uL (3.6-5.1); RED CELL DISTRIBUTION WIDTH 15.2 % (11.7-14.4)
--- NOTE | 2018-02-11 06:21 | Diagnostic Imaging Report ---
EXAM: CHEST SINGLE (PORTABLE), AP 1 view INDICATION: Respiratory failure COMPARISON: Previous day FINDINGS: LINES/TUBES: ET tube projects at the franny near the right mainstem bronchus origin. Stable nasogastric tube and right approach PICC LUNGS/PLEURA: Stable large layering right effusion with associated atelectasis/right lung opacity. Possible underlying edema. HEART AND MEDIASTINUM: Stable cardiac enlargement and prominence of the right paratracheal stripe IMPRESSION: ET tube now projects at the franny near the right mainstem bronchus origin. Otherwise no interval change Signed by: Dr Louisa Eng MD on 02/11/2018 6:18 AM
[2018-02-11 06:54] LABS: ALANINE AMINOTRANSFERASE 32 IU/L (0-55); ALBUMIN 2.2 g/dL (3.5-5.0); ALBUMIN/GLOBULIN RATIO 0.5 (0.8-2.0); ALKALINE PHOSPHATASE 85 IU/L (40-150); ANION GAP 14.3 mmol/L (8-16); BLOOD UREA NITROGEN 37 mg/dL (7-26); BUN/CREATININE RATIO 45 (6-25); CALCIUM 8.7 mg/dL (8.4-10.2); CARBON DIOXIDE 29 mmol/L (22-29); CHLORIDE 102 mmol/L (98-107); CREATININE, SERUM 0.83 mg/dL (0.57-1.11); EST GLOMERULAR FILTRATION RATE > 60 ML/MIN (60-); GLUCOSE 136 mg/dL (74-118); POTASSIUM 3.3 mmol/L (3.5-5.1); SODIUM 142 mmol/L (136-145)
[2018-02-11] MEDS: LEVALBUTEROL HCL SOLN NEBU 0.63 MG/3 ML NEB INH PRN ×3 (07:38→19:15)
[2018-02-11] MEDS ORDERED: POTASSIUM CHLORIDE 20MEQ/100ML 100 ML IV ONE (08:00)
[2018-02-11] MEDS: FAMOTIDINE 20 MG TAB PO SCH ×2 (08:14→16:53)
[2018-02-11] MEDS: AMIODARONE HCL 200 MG TAB PO SCH (08:15)
[2018-02-11] MEDS: FUROSEMIDE INJ 10 MG/ML 4 ML VIAL IV SCH ×2 (08:15→22:06)
[2018-02-11] MEDS: ENOXAPARIN SOD INJ 60 MG/0.6 ML SYR SC SCH ×2 (08:15→22:06)
[2018-02-11 11:43] LABS: ABG PCO2 46 mmHg (41-51); ABG PH 7.47 (7.31-7.41); ABG PO2 60 mmHg (80-105)
[2018-02-11 11:45] LABS: ABG HCO3 33 mmol/L (23-28)
[2018-02-11] MEDS ORDERED: AMIODARONE HCL 900 MG in DEXTROSE 5% 500ML 500 ML IV SCH (13:30)
[2018-02-11] MEDS: CEFTRIAXONE SOD 1 GM VIAL IV SCH (13:39)
[2018-02-12] VITALS (85 sets, daily range): BP systolic 73–128; BP diastolic 27–122
[2018-02-12] MEDS: CEFTRIAXONE SOD 1 GM VIAL IV SCH ×2 (00:46→12:45)
[2018-02-12] MEDS: METOPROLOL TARTRATE 25 MG TAB PO SCH ×5 (00:46→23:55)
[2018-02-12] MEDS: SODIUM CHLORIDE 0.9% 250ML IRRIG IR SCH ×6 (00:48→19:25)
[2018-02-12] MEDS: LEVALBUTEROL HCL SOLN NEBU 0.63 MG/3 ML NEB INH PRN ×4 (02:15→19:35)
[2018-02-12] MEDS: METOCLOPRAMIDE HCL 10 MG TAB NG SCH ×3 (05:45→23:54)
[2018-02-12] MEDS: INSULIN REGULAR, HUMAN 100 UNIT/1 ML 3ML VIAL SQ SCH ×4 (05:46→18:00)
[2018-02-12 06:29] LABS: BASOPHILS % 0.5 % (0.0-1.0); EOSINOPHILS # (AUTO) 0.1 (0.0-0.4); EOSINOPHILS % 1.4 % (0.0-6.0); HEMATOCRIT 40.3 % (34.2-44.1); HEMOGLOBIN 13.1 g/dL (12.0-16.0); LYMPHOCYTES # (AUTO) 1.2 (1.0-3.2); LYMPHOCYTES % 13.7 % (18.0-39.1); MEAN CORPUSCULAR HEMOGLOBIN 29.6 pg (28-32); MEAN CORPUSCULAR HGB CONC 32.5 g/dL (31-35); MONOCYTES # (AUTO) 0.6 (0.2-0.8); MONOCYTES % 6.5 % (4.4-11.3); NEUTROPHILS # (AUTO) 6.8 (2.1-6.9); NEUTROPHILS % 77.4 % (38.7-80.0); PLATELET COUNT 378 x10e3/uL (140-360); RED BLOOD COUNT 4.43 x10e6/uL (3.6-5.1)
[2018-02-12 06:52] LABS: ANION GAP 14.5 mmol/L (8-16); BLOOD UREA NITROGEN 29 mg/dL (7-26); BUN/CREATININE RATIO 38 (6-25); CALCIUM 9.2 mg/dL (8.4-10.2); CARBON DIOXIDE 30 mmol/L (22-29); CHLORIDE 101 mmol/L (98-107); CREATININE, SERUM 0.77 mg/dL (0.57-1.11); EST GLOMERULAR FILTRATION RATE > 60 ML/MIN (60-); GLUCOSE 99 mg/dL (74-118); POTASSIUM 3.5 mmol/L (3.5-5.1); SODIUM 142 mmol/L (136-145)
[2018-02-12] MEDS: FAMOTIDINE 20 MG TAB PO SCH ×2 (08:34→15:29)
[2018-02-12] MEDS: ENOXAPARIN SOD INJ 60 MG/0.6 ML SYR SC SCH (08:35)
[2018-02-12] MEDS: FUROSEMIDE INJ 10 MG/ML 4 ML VIAL IV SCH (08:35)
[2018-02-12] MEDS: AMIODARONE HCL 200 MG TAB PO SCH (08:35)
[2018-02-13] VITALS (71 sets, daily range): BP systolic 72–160; BP diastolic 34–117
[2018-02-13] MEDS: SODIUM CHLORIDE 0.9% 250ML IRRIG IR SCH (01:00)
[2018-02-13] MEDS: LEVALBUTEROL HCL SOLN NEBU 0.63 MG/3 ML NEB INH PRN (01:10)
[2018-02-13] MEDS: CEFTRIAXONE SOD 1 GM VIAL IV SCH ×2 (01:50→12:45)
[2018-02-13] MEDS: INSULIN REGULAR, HUMAN 100 UNIT/1 ML 3ML VIAL SQ SCH ×5 (06:00→22:17)
[2018-02-13 06:13] LABS: BASOPHILS % 0.3 % (0.0-1.0); EOSINOPHILS # (AUTO) 0.2 (0.0-0.4); EOSINOPHILS % 2.1 % (0.0-6.0); HEMATOCRIT 43.7 % (34.2-44.1); HEMOGLOBIN 13.8 g/dL (12.0-16.0); LYMPHOCYTES # (AUTO) 1.9 (1.0-3.2); LYMPHOCYTES % 19.8 % (18.0-39.1); MEAN CORPUSCULAR HEMOGLOBIN 29.4 pg (28-32); MEAN CORPUSCULAR HGB CONC 31.6 g/dL (31-35); MEAN CORPUSCULAR VOLUME 93.2 fL (81-99); MONOCYTES # (AUTO) 0.6 (0.2-0.8); MONOCYTES % 6.5 % (4.4-11.3); NEUTROPHILS # (AUTO) 6.6 (2.1-6.9); NEUTROPHILS % 70.9 % (38.7-80.0); PLATELET COUNT 384 x10e3/uL (140-360); RED BLOOD COUNT 4.69 x10e6/uL (3.6-5.1)
[2018-02-13 06:26] LABS: ALANINE AMINOTRANSFERASE 27 IU/L (0-55); ALBUMIN 2.6 g/dL (3.5-5.0); ALBUMIN/GLOBULIN RATIO 0.6 (0.8-2.0); ALKALINE PHOSPHATASE 80 IU/L (40-150); ANION GAP 14.5 mmol/L (8-16); BLOOD UREA NITROGEN 25 mg/dL (7-26); BUN/CREATININE RATIO 30 (6-25); CALCIUM 9.2 mg/dL (8.4-10.2); CARBON DIOXIDE 29 mmol/L (22-29); CHLORIDE 98 mmol/L (98-107); CREATININE, SERUM 0.83 mg/dL (0.57-1.11); EST GLOMERULAR FILTRATION RATE > 60 ML/MIN (60-); GLUCOSE 113 mg/dL (74-118); POTASSIUM 3.5 mmol/L (3.5-5.1); SODIUM 138 mmol/L (136-145)
[2018-02-13] MEDS: METOPROLOL TARTRATE 25 MG TAB PO SCH ×3 (06:34→17:11)
[2018-02-13] MEDS: METOCLOPRAMIDE HCL 10 MG TAB NG SCH ×3 (06:34→22:00)
[2018-02-13] MEDS: DIGOXIN 0.125 MG TAB PO SCH (08:32)
[2018-02-13] MEDS: FUROSEMIDE INJ 10 MG/ML 4 ML VIAL IV SCH (09:00)
[2018-02-13] MEDS: FAMOTIDINE 20 MG TAB PO SCH (10:01)
[2018-02-13] MEDS: AMIODARONE HCL 200 MG TAB PO SCH (11:53)
[2018-02-13] MEDS: APIXABAN 5 MG TABLET PO SCH (17:14)
[2018-02-13] MEDS: ZOLPIDEM TARTRATE 10 MG TAB PO SCH (21:00)
[2018-02-14] VITALS (7 sets, daily range): BP systolic 81–106; BP diastolic 49–73
[2018-02-14] MEDS: CEFTRIAXONE SOD 1 GM VIAL IV SCH ×2 (00:45→12:45)
[2018-02-14] MEDS: METOCLOPRAMIDE HCL 10 MG TAB NG SCH ×3 (06:00→22:00)
[2018-02-14] MEDS: INSULIN REGULAR, HUMAN 100 UNIT/1 ML 3ML VIAL SQ SCH ×4 (06:00→23:39)
[2018-02-14 06:42] LABS: BASOPHILS % 0.5 % (0.0-1.0); EOSINOPHILS # (AUTO) 0.2 (0.0-0.4); EOSINOPHILS % 2.6 % (0.0-6.0); HEMATOCRIT 38.8 % (34.2-44.1); HEMOGLOBIN 12.4 g/dL (12.0-16.0); LYMPHOCYTES # (AUTO) 1.1 (1.0-3.2); LYMPHOCYTES % 17.2 % (18.0-39.1); MEAN CORPUSCULAR HEMOGLOBIN 28.8 pg (28-32); MEAN CORPUSCULAR VOLUME 90.2 fL (81-99); MONOCYTES # (AUTO) 0.5 (0.2-0.8); MONOCYTES % 7.5 % (4.4-11.3); NEUTROPHILS # (AUTO) 4.7 (2.1-6.9); NEUTROPHILS % 71.7 % (38.7-80.0); PLATELET COUNT 313 x10e3/uL (140-360); RED CELL DISTRIBUTION WIDTH 14.6 % (11.7-14.4)
[2018-02-14 06:56] LABS: ANION GAP 11.3 mmol/L (8-16); BLOOD UREA NITROGEN 19 mg/dL (7-26); BUN/CREATININE RATIO 26 (6-25); CALCIUM 8.6 mg/dL (8.4-10.2); CARBON DIOXIDE 30 mmol/L (22-29); CHLORIDE 98 mmol/L (98-107); CREATININE, SERUM 0.72 mg/dL (0.57-1.11); EST GLOMERULAR FILTRATION RATE > 60 ML/MIN (60-); GLUCOSE 94 mg/dL (74-118); MAGNESIUM 1.8 MG/DL (1.3-2.1); POTASSIUM 3.3 mmol/L (3.5-5.1); SODIUM 136 mmol/L (136-145)
[2018-02-14] MEDS: FUROSEMIDE INJ 10 MG/ML 4 ML VIAL IV SCH (08:06)
[2018-02-14] MEDS: METOPROLOL TARTRATE 25 MG TAB PO SCH ×2 (08:55→09:00)
[2018-02-14] MEDS: APIXABAN 5 MG TABLET PO SCH ×2 (09:32→18:08)
[2018-02-14] MEDS: AMIODARONE HCL 200 MG TAB PO SCH (09:32)
[2018-02-14] MEDS: PANTOPRAZOLE SOD 40 MG TABEC PO SCH (09:44)
[2018-02-14] MEDS ORDERED: POTASSIUM CHLORIDE 20 MEQ TAB CR PO STA (11:21)
[2018-02-14] MEDS: GUAIFENESIN 600 MG TAB PO SCH ×3 (12:45→23:39)
[2018-02-14] MEDS: ZOLPIDEM TARTRATE 10 MG TAB PO SCH (21:30)
[2018-02-15] VITALS: BP 106/73
[2018-02-15 00:51] LABS: ABG PCO2 47 mmHg (41-51); ABG PH 7.42 (7.31-7.41)
[2018-02-15 00:52] LABS: ABG HCO3 31 mmol/L (23-28); ABG PO2 73 mmHg (80-105)
[2018-02-15 04:00] VITALS: BP 92/56
[2018-02-15] MEDS: GUAIFENESIN 600 MG TAB PO SCH ×4 (05:42→23:52)
[2018-02-15] MEDS: INSULIN REGULAR, HUMAN 100 UNIT/1 ML 3ML VIAL SQ SCH ×3 (05:42→17:39)
[2018-02-15] MEDS: METOCLOPRAMIDE HCL 10 MG TAB NG SCH ×3 (05:42→21:03)
[2018-02-15 06:26] LABS: BASOPHILS % 0.2 % (0.0-1.0); EOSINOPHILS # (AUTO) 0.2 (0.0-0.4); EOSINOPHILS % 3.5 % (0.0-6.0); HEMATOCRIT 38.1 % (34.2-44.1); HEMOGLOBIN 12.6 g/dL (12.0-16.0); LYMPHOCYTES # (AUTO) 1.1 (1.0-3.2); LYMPHOCYTES % 20.3 % (18.0-39.1); MEAN CORPUSCULAR HEMOGLOBIN 29.8 pg (28-32); MEAN CORPUSCULAR HGB CONC 33.1 g/dL (31-35); MEAN CORPUSCULAR VOLUME 90.1 fL (81-99); MONOCYTES # (AUTO) 0.4 (0.2-0.8); MONOCYTES % 7.8 % (4.4-11.3); NEUTROPHILS # (AUTO) 3.6 (2.1-6.9); PLATELET COUNT 275 x10e3/uL (140-360); RED BLOOD COUNT 4.23 x10e6/uL (3.6-5.1); RED CELL DISTRIBUTION WIDTH 14.6 % (11.7-14.4)
[2018-02-15 06:47] LABS: ANION GAP 11.5 mmol/L (8-16); BLOOD UREA NITROGEN 15 mg/dL (7-26); BUN/CREATININE RATIO 21 (6-25); CALCIUM 8.5 mg/dL (8.4-10.2); CARBON DIOXIDE 29 mmol/L (22-29); CHLORIDE 99 mmol/L (98-107); CREATININE, SERUM 0.71 mg/dL (0.57-1.11); EST GLOMERULAR FILTRATION RATE > 60 ML/MIN (60-); GLUCOSE 91 mg/dL (74-118); POTASSIUM 3.5 mmol/L (3.5-5.1); SODIUM 136 mmol/L (136-145)
[2018-02-15] MEDS: PANTOPRAZOLE SOD 40 MG TABEC PO SCH (08:00)
[2018-02-15] MEDS: METOPROLOL TARTRATE 25 MG TAB PO SCH (08:05)
[2018-02-15 08:06] VITALS: BP 97/65
[2018-02-15] MEDS: APIXABAN 5 MG TABLET PO SCH ×2 (08:39→16:26)
[2018-02-15] MEDS: FUROSEMIDE INJ 10 MG/ML 4 ML VIAL IV SCH (08:39)
[2018-02-15] MEDS: AMIODARONE HCL 200 MG TAB PO SCH (08:39)
[2018-02-15] MEDS: DIGOXIN 0.125 MG TAB PO SCH (08:39)
[2018-02-15 12:00] VITALS: BP 98/59
[2018-02-15 15:55] VITALS: BP 110/64
[2018-02-15 20:00] VITALS: BP 103/52
[2018-02-16] MEDS: GUAIFENESIN 600 MG TAB PO SCH ×2 (05:22→13:18)
[2018-02-16] MEDS: METOCLOPRAMIDE HCL 10 MG TAB NG SCH ×2 (05:22→13:18)
[2018-02-16] MEDS: INSULIN REGULAR, HUMAN 100 UNIT/1 ML 3ML VIAL SQ SCH ×3 (06:00→12:00)
[2018-02-16 06:36] LABS: BASOPHILS % 0.2 % (0.0-1.0); EOSINOPHILS # (AUTO) 0.2 (0.0-0.4); EOSINOPHILS % 4.4 % (0.0-6.0); HEMATOCRIT 37.3 % (34.2-44.1); HEMOGLOBIN 12.5 g/dL (12.0-16.0); LYMPHOCYTES # (AUTO) 1.3 (1.0-3.2); LYMPHOCYTES % 22.7 % (18.0-39.1); MEAN CORPUSCULAR HEMOGLOBIN 29.6 pg (28-32); MEAN CORPUSCULAR HGB CONC 33.5 g/dL (31-35); MEAN CORPUSCULAR VOLUME 88.4 fL (81-99); MONOCYTES # (AUTO) 0.5 (0.2-0.8); MONOCYTES % 9.3 % (4.4-11.3); NEUTROPHILS # (AUTO) 3.5 (2.1-6.9); PLATELET COUNT 267 x10e3/uL (140-360); RED BLOOD COUNT 4.22 x10e6/uL (3.6-5.1); RED CELL DISTRIBUTION WIDTH 14.4 % (11.7-14.4)
[2018-02-16 06:55] LABS: ANION GAP 11.3 mmol/L (8-16); BLOOD UREA NITROGEN 10 mg/dL (7-26); BUN/CREATININE RATIO 15 (6-25); CALCIUM 8.6 mg/dL (8.4-10.2); CARBON DIOXIDE 30 mmol/L (22-29); CHLORIDE 100 mmol/L (98-107); CREATININE, SERUM 0.68 mg/dL (0.57-1.11); EST GLOMERULAR FILTRATION RATE > 60 ML/MIN (60-); GLUCOSE 89 mg/dL (74-118); MAGNESIUM 1.7 MG/DL (1.3-2.1); POTASSIUM 3.3 mmol/L (3.5-5.1); SODIUM 138 mmol/L (136-145)
[2018-02-16 07:53] VITALS: BP 101/55
[2018-02-16] MEDS: FUROSEMIDE INJ 10 MG/ML 4 ML VIAL IV SCH (08:21)
[2018-02-16] MEDS: AMIODARONE HCL 200 MG TAB PO SCH (08:21)
[2018-02-16] MEDS: PANTOPRAZOLE SOD 40 MG TABEC PO SCH (08:21)
[2018-02-16] MEDS: METOPROLOL TARTRATE 25 MG TAB PO SCH (08:21)
[2018-02-16] MEDS: APIXABAN 5 MG TABLET PO SCH ×2 (08:21→16:20)
[2018-02-16 08:39] VITALS: BP 101/50
[2018-02-16] MEDS ORDERED: MUCINEX600 MG PO (11:02)
[2018-02-16] MEDS ORDERED: LOPRESSOR25 MG PO (11:02)
[2018-02-16] MEDS ORDERED: DIGOXIN125 MCG PO (11:02)
[2018-02-16] MEDS ORDERED: ALBUTEROL HFA INH (11:02)
[2018-02-16] MEDS ORDERED: Apixaban PO (11:02)
[2018-02-16] MEDS ORDERED: AMIODARONE HCL200 MG PO (11:02)
[2018-02-16] MEDS ORDERED: FUROSEMIDE40 MG PO (11:02)
[2018-02-16] MEDS ORDERED: K DUR10 MEQ PO (11:02)
[2018-02-16] MEDS ORDERED: POTASSIUM CHLORIDE 20 MEQ TAB CR PO NR (11:30)
[2018-02-16 12:00] VITALS: BP 121/65
[2018-02-16 16:00] VITALS: BP 93/56
--- NOTE | 2018-02-17 02:06 | Discharge Summary ---
ADMISSION DIAGNOSES: 1. Nwgnv-mh-qwxshug diastolic heart failure. 2. Atrial fibrillation, rapid ventricular response. 3. Hypertension. 4. Hyperglycemia without diagnosis of diabetes. 5. Hypertension, complicated by chronic kidney disease 3 and complicated by diastolic heart failure and elevated liver enzymes. DISCHARGE DIAGNOSES: 1. Zaxgt-tv-shfjhfc diastolic heart failure. 2. Atrial fibrillation, rapid ventricular response. 3. Hypertension. 4. Hyperglycemia without diagnosis of diabetes. 5. Hypertension, complicated by chronic kidney disease 3 and complicated by diastolic heart failure and elevated liver enzymes. 6. Hypokalemia. 7. Hypermagnesemia. 8. Ruled out type 2 diabetes. HISTORY: Patient has a history of hypertension, recent AFib about 2 weeks ago with evidence of CHF and a recent diagnosis of COPD about 2 weeks ago at [facility]. HOSPITAL COURSE: Jggexo[age]awfed[age]-old female, who was in her usual state of health until about 2 weeks ago when she developed respiratory distress, palpitations, and was seen at [facility] for AFib, RVR as well as chronic lung changes related to former smoking and second hand smoke. Once she was discharged home with cardiac medications, she was started on Eliquis, but the pharmacy did not have it for a couple of days, so she did not take any of the prescribed medications about 3 or 4 days. When she presented to [facility], she was in rapidly deteriorating respiratory distress with palpitations. She was found to be in AFib, RVR. Patient was intubated in the ER. Her blood gas prior to intubation showed a pH of 7.28, pCO2 of 55, and a pO2 of 119. On admission, the chest x-ray showed bilateral interstitial and alveolar opacities extending from the lalita consistent with pulmonary edema, opacification of the right lower hemithorax, cardiac silhouette is obscured, no acute bony abnormality. Pulmonology and cardiology were consulted. Patient was started on IV amiodarone and Lovenox q.12h. weight based. Patient's blood sugar was elevated, but upon A1c check, her A1c was found to be 5.9. Due to the elevated liver enzymes, hepatitis panel and abdominal ultrasound were completed. The hepatitis panel was negative, and the abdominal ultrasound showed cholelithiasis, no sonographic findings to suggest cholecystitis. X-ray of the abdomen showed that the patient had an NG tube placed and there were few distended small bowel loops in the right hemiabdomen. Blood culture negative. Urine culture negative. Pleural fluid was negative. Patient had a thoracentesis on February 10, they were able to put 1350 mL out of the right, that fluid was negative. Sputum culture showed Haemophilus flu. Patient was given Rocephin times 7 days. Patient was extubated and NG tube pulled out. Patient was diuresed. Patient moved to medical floor where she was stable. Patient and family denied SNF placement. We worked for 2 days to get her home oxygen and a walker because the family told us that she did not have those things, and then 2 days later we found out that she does have it and Ulices Mcmillan set it up 2 weeks prior, so patient will be discharged home with home oxygen and walker that she already has. Physical therapy will be setup for her upon discharge. She lives with family because she feels weak. She was discharged with amiodarone, digoxin, Lasix, Mucinex p.r.n., metoprolol, K-Dur, and Eliquis. She will follow up with primary care in 2 weeks. Dictated by Lourdes Jessica NP HALLE EVANGELISTA MD Job#: [id number]
== END 2018-02-16 19:07 | disposition home or self-care (01) | DRG 870 ==
LOC: ER 17:59 → ICU 20:06 → MED/SURG2 02-13 17:53
PROVIDERS: ADMIT Internal Medicine; ATTEND Internal Medicine
PROC: 5A1955Z Respiratory Ventilation, Greater than 96 Consecutive Hours (ICD-10-PCS; principal; 2018-01-28)
PROC: 0BH17EZ Insertion of Endotracheal Airway into Trachea, Via Natural or Artificial Opening (ICD-10-PCS; principal; 2018-01-28)
PROC: 02HV33Z Insertion of Infusion Device into Superior Vena Cava, Percutaneous Approach (ICD-10-PCS; 2018-01-30)
DX: A41.9 Sepsis, unspecified organism (principal); J69.0 Pneumonitis due to inhalation of food and vomit; J96.21 Acute and chronic respiratory failure with hypoxia; I50.33 Acute on chronic diastolic (congestive) heart failure; J14 Pneumonia due to Hemophilus influenzae; R65.21 Severe sepsis with septic shock; J18.9 Pneumonia, unspecified organism; J09.X1 Influenza due to identified novel influenza A virus with pneumonia; I13.0 Hypertensive heart and chronic kidney disease with heart failure and stage 1 through stage 4 chronic kidney disease, or unspecified chronic kidney disease; J96.22 Acute and chronic respiratory failure with hypercapnia; N17.9 Acute kidney failure, unspecified; E87.1 Hypo-osmolality and hyponatremia; N39.0 Urinary tract infection, site not specified; E44.0 Moderate protein-calorie malnutrition; I48.91 Unspecified atrial fibrillation; N18.3 Chronic kidney disease, stage 3 (moderate); J44.9 Chronic obstructive pulmonary disease, unspecified; Z77.22 Contact with and (suspected) exposure to environmental tobacco smoke (acute) (chronic); R73.9 Hyperglycemia, unspecified
CPT/HCPCS: 32555; 36415; 36569; 36600; 71045; 74018; 76700; 80048; 80053; 80061; 80162; 81001; 82140; 82550; 82553; 82805; 82948; 83036; 83605; 83615; 83735; 83880; 84157; 84439; 84443; 84484; 85025; 85610; 85730; 87040; 87070; 87086; 87205; 89051; 93005; 93306; 94002; 94003; 94640; 94660; 96361; 96365; 96366; 96372; 99285; J0330; J0456; J0692; J0696; J1160; J1650; J1940; J1956; J2060; J2250; J2543; J2920; J2930; J3370; J7030; J7050; J7060; J7799

== ENCOUNTER 2018-11-24 09:23 | Inpatient (IN) | payer SELFPAY ==
[~2018-11-24] VITALS: Ht 154.9 cm; Wt 68.9 kg
[2018-11-24] VITALS (9 sets, daily range): BP systolic 87–187; BP diastolic 51–96
[~2018-11-24 09:23] MED LIST: ALBUTEROL HFA INH; AMIODARONE HCL200 MG PO; Apixaban PO; DIGOXIN125 MCG PO; FUROSEMIDE40 MG PO; K DUR10 MEQ PO; LOPRESSOR25 MG PO; MUCINEX600 MG PO
[2018-11-24 10:16] LABS: BASOPHILS % 0.2 % (0.0-1.0); EOSINOPHILS # (AUTO) 0.1 (0.0-0.4); EOSINOPHILS % 0.9 % (0.0-6.0); HEMATOCRIT 41.3 % (34.2-44.1); LYMPHOCYTES # (AUTO) 1.3 (1.0-3.2); LYMPHOCYTES % 19.7 % (18.0-39.1); MEAN CORPUSCULAR HEMOGLOBIN 29.6 pg (28-32); MEAN CORPUSCULAR HGB CONC 33.4 g/dL (31-35); MEAN CORPUSCULAR VOLUME 88.4 fL (81-99); MONOCYTES # (AUTO) 0.4 (0.2-0.8); MONOCYTES % 5.9 % (4.4-11.3); NEUTROPHILS # (AUTO) 4.7 (2.1-6.9); NEUTROPHILS % 72.8 % (38.7-80.0); PLATELET COUNT 227 x10e3/uL (140-360); RED BLOOD COUNT 4.67 x10e6/uL (3.6-5.1); RED CELL DISTRIBUTION WIDTH 13.5 % (11.7-14.4)
--- NOTE | 2018-11-24 10:28 | Diagnostic Imaging Report ---
EXAM: CHEST SINGLE (PORTABLE), AP 1 view INDICATION: Query pneumonia. COMPARISON: Chest radiograph FINDINGS: LINES/TUBES: None. LUNGS/PLEURA: There is patchy consolidation within the lower lung zones, right greater than left. Mild bilateral perihilar and interstitial opacities. There is a focal opacity projecting in the right lung apex medially adjacent to the trachea. HEART AND MEDIASTINUM: There is mild enlargement of the cardiomediastinal silhouette. Atherosclerotic calcifications of the aortic arch. BONES: No acute bony findings. IMPRESSION: Focal opacity projecting in the right lung apex medially adjacent to the trachea. Lymphadenopathy or mass lesion cannot be excluded and chest CT is suggested for further evaluation. Patchy lower lung zone consolidation, which may reflect pneumonia in the appropriate clinical setting. Mild pulmonary interstitial edema. Signed by: Dr. Staci Callahan MD on 11/24/2018 10:25 AM
[2018-11-24 10:31] LABS: HEMOGLOBIN 13.8 g/dL (12.0-16.0)
[2018-11-24 10:39] LABS: CLARITY,URINE SL CLOUDY (CLEAR); COLOR,URINE YELLOW (YELLOW)
[2018-11-24 10:40] LABS: BILIRUBIN,URINE NEGATIVE (NEGATIVE); KETONES,URINE NEGATIVE (NEGATIVE); LEUKOCYTE ESTERASE ,URINE NEGATIVE (NEGATIVE); NITRITE,URINE NEGATIVE (NEGATIVE); PROTEIN,URINE DIPSTICK NEGATIVE (NEGATIVE); URINE UROBILINOGEN 0.2 mg/dL (0.2 - 1)
[2018-11-24 10:42] LABS: ALBUMIN 3.9 g/dL (3.5-5.0); ANION GAP 15.5 mmol/L (8-16); CALCIUM 9.4 mg/dL (8.4-10.2); CREATININE, SERUM 1.03 mg/dL (0.57-1.11); POTASSIUM 3.5 mmol/L (3.5-5.1)
[2018-11-24 10:43] LABS: BACTERIA,URINE RARE /HPF; EPITHELIAL CELLS,URINE FEW /LPF
[2018-11-24] MEDS ORDERED: VANCOMYCIN 1GM/NS 250 ML 250 ML IV STA (10:46)
[2018-11-24] MEDS ORDERED: CEFEPIME HCL 1 GM VIAL IV SCH (11:00)
[2018-11-24] MEDS ORDERED: SODIUM CHLORIDE 0.9% 500ML 500 ML IV ONE (11:30)
[2018-11-24] MEDS: CEFEPIME 1GM/NS 0.9% 50 ML 50 ML IV SCH ×2 (11:32→22:48)
[2018-11-24] MEDS ORDERED: TOPROL XL50 MG PO (11:42)
[2018-11-24] MEDS ORDERED: LASIX20 MG PO (11:42)
[2018-11-24] MEDS: VANCOMYCIN 1GM/NS 250 ML 250 ML IV SCH (12:00)
[2018-11-24] MEDS ORDERED: SODIUM CHLORIDE 0.9% 1000ML 1,000 ML IV SCH (12:30)
[2018-11-24] MEDS ORDERED: IOPAMIDOL 370 MG/ML 200 ML INFUS..BTL INJ ONE (12:41)
[2018-11-24] MEDS ORDERED: SODIUM CHLORIDE 0.9% 50ML 50 ML ONE (12:41)
--- NOTE | 2018-11-24 13:30 | NUR ---
RECEIVED PT FROM ER AT THIS TIME PT RA LABORED BREATHING SAT AT 96% NOTED WITH EXERTION, PT INSTRUCTED TO CALL FOR ASSISTANCE. VERBALIZED UNDERSTANDING CALL LIGHT WITHIN REACH SIDE RAILS UPX 1 WILL CONTINUE TO MONITOR
--- NOTE | 2018-11-24 13:54 | Diagnostic Imaging Report ---
CT CHEST WITH CONTRAST HISTORY: Cough x1 month, 6 months ago had pneumonia, query malignancy COMPARISON: Chest radiograph November 24, 2018 TECHNIQUE: CT scan of the chest WITH intravenous contrast, using standard protocol. Coronal and sagittal reformats are provided. IV CONTRAST: 100 cc of Isovue-370. RADIATION DOSE: Total DLP: 480.2 mGy*cm Dose modulation, iterative reconstruction, and/or weight based adjustment of the mA/kV was utilized to reduce the radiation dose to as low as reasonably achievable. COMPLICATIONS: None FINDINGS: Lines/tubes: None. Lungs and Airways: Bilateral mild atelectasis, scarring and/or collapse, most notably: A 2.8 x 1.5 cm focus in the left upper lobe (series 3 image 22). Multiple nodular densities, including a few peripheral nodular densities: * 5 mm nodular density in the right upper lobe (series 3 image 22) * 6 mm oval nodule within the right upper lobe (series 3 image 23). * 6 mm round nodule within the right upper lobe (series 3 image 27). * 8 mm irregular nodule within the right upper lobe (series 3 image 35). * 4 mm round nodule within the right upper lobe (series 3 image 36). Bronchial central prominent wall thickening versus surrounding soft tissue density with intraluminal debris versus mass within a bronchus to the medial aspect of the right middle lobe with associated collapse. Pleura: The pleural spaces are clear. Heart and mediastinum: The thyroid gland is normal. The heart and pericardium are within normal limits. Abdomen: Limited evaluation of the upper abdomen. A noncalcified 1.3 cm density near the neck of the gallbladder, compatible with a noncalcified stone. Coarse calcification versus metallic coils near the hilum of the spleen. Lymph nodes: Multiple nonspecific subcentimeter mediastinal lymph nodes, one of the larger lymph nodes within the anterior mediastinum (series 2 image 35). Vessels: Diffuse scattered atherosclerotic vascular calcifications. Bones: Diffusely decreased mineralization of the osseous structures limits bone detail. Accentuation of the thoracic kyphosis. Multilevel degenerative disc changes. Soft tissues: Otherwise, unremarkable. IMPRESSION: 1. Central prominent bronchial wall thickening versus surrounding soft tissue density with intraluminal debris versus mass obstructing a bronchus to the right middle lobe with associated collapse. These findings are worrisome for malignancy. Alternatively, the differential diagnosis also includes the sequela of remote mediastinitis. 2. Multiple subcentimeter pulmonary nodules, recommend attention on subsequent follow-ups. 3. Probable noncalcified gallstone. 4. Diffuse osseous demineralization. Signed by: Dr. Surinder Carrillo D.O., M.M.M. on 11/24/2018 1:51 PM
[2018-11-24] MEDS: SODIUM CHLORIDE 0.9% 1000ML 1,000 ML IV SCH ×2 (14:02→22:48)
[2018-11-24] MEDS ORDERED: ACETAMINOPHEN 325 MG TAB PO PRN (18:30)
[2018-11-24] MEDS ORDERED: ALBUTEROL/IPRATROPIUM 3 ML NEB NEB PRN (18:30)
[2018-11-24] MEDS ORDERED: FUROSEMIDE 40 MG TAB PO SCH (21:00)
[2018-11-24] MEDS ORDERED: FUROSEMIDE 20 MG TAB PO ONE (21:30)
[2018-11-24] MEDS: APIXABAN 5 MG TABLET PO SCH (21:38)
[2018-11-25] VITALS (8 sets, daily range): BP systolic 113–162; BP diastolic 63–91
[2018-11-25] MEDS: FUROSEMIDE 20 MG TAB PO SCH ×2 (05:57→17:13)
[2018-11-25 06:57] LABS: BASOPHILS % 0.5 % (0.0-1.0); EOSINOPHILS # (AUTO) 0.2 (0.0-0.4); EOSINOPHILS % 2.8 % (0.0-6.0); HEMATOCRIT 35.4 % (34.2-44.1); LYMPHOCYTES # (AUTO) 1.5 (1.0-3.2); LYMPHOCYTES % 24.4 % (18.0-39.1); MEAN CORPUSCULAR HEMOGLOBIN 29.7 pg (28-32); MEAN CORPUSCULAR HGB CONC 33.9 g/dL (31-35); MEAN CORPUSCULAR VOLUME 87.6 fL (81-99); MONOCYTES # (AUTO) 0.7 (0.2-0.8); MONOCYTES % 10.9 % (4.4-11.3); NEUTROPHILS # (AUTO) 3.7 (2.1-6.9); NEUTROPHILS % 61.2 % (38.7-80.0); PLATELET COUNT 203 x10e3/uL (140-360); RED BLOOD COUNT 4.04 x10e6/uL (3.6-5.1); RED CELL DISTRIBUTION WIDTH 13.4 % (11.7-14.4)
[2018-11-25 07:17] LABS: ANION GAP 12.6 mmol/L (8-16); BLOOD UREA NITROGEN 7 mg/dL (7-26); BUN/CREATININE RATIO 9 (6-25); CALCIUM 8.5 mg/dL (8.4-10.2); CARBON DIOXIDE 24 mmol/L (22-29); CHLORIDE 107 mmol/L (98-107); EST GLOMERULAR FILTRATION RATE > 60 ML/MIN (60-); GLUCOSE 94 mg/dL (74-118); POTASSIUM 3.6 mmol/L (3.5-5.1); SODIUM 140 mmol/L (136-145)
--- NOTE | 2018-11-25 09:20 | NUR ---
Pt received resting in bed with daughter. Alert and oriented x4 but Vietnamese Speaking only. Pt with IV infusing via left AC. Oriented to staff and surroundings. Encouraged to press call manzanares if help needed. All meds given as ordered. Emotional support given. Will monitor
[2018-11-25] MEDS: APIXABAN 5 MG TABLET PO SCH ×2 (09:21→17:13)
[2018-11-25] MEDS: AMIODARONE HCL 200 MG TAB PO SCH (09:21)
[2018-11-25] MEDS: SODIUM CHLORIDE 0.9% 1000ML 1,000 ML IV SCH ×2 (09:21→17:13)
[2018-11-25] MEDS: POTASSIUM CHLORIDE 10MEQ EA PO SCH (09:21)
[2018-11-25] MEDS: METOPROLOL SUCCINATE 50 MG TAB XL PO SCH (09:21)
[2018-11-25] MEDS: CEFEPIME 1GM/NS 0.9% 50 ML 50 ML IV SCH ×2 (10:00→22:40)
[2018-11-25] MEDS: VANCOMYCIN 1GM/NS 250 ML 250 ML IV SCH (10:30)
[2018-11-25] MEDS: ALBUTEROL/IPRATROPIUM 3 ML NEB NEB SCH ×2 (17:11→20:25)
--- NOTE | 2018-11-25 19:00 | NUR ---
patient recieved awake, alert, sitting up in chair at the bedside. vss. no c/o pain noted. respirations even and unlabored. no distress noted at this time. ivf continue to infuse without difficulty. family remains at the bedside. patient/family instructed to call for assistance when needed.
[2018-11-26] VITALS (8 sets, daily range): BP systolic 97–178; BP diastolic 50–84
[2018-11-26] MEDS: ALBUTEROL/IPRATROPIUM 3 ML NEB NEB SCH ×7 (00:25→23:00)
[2018-11-26] MEDS: SODIUM CHLORIDE 0.9% 1000ML 1,000 ML IV SCH (04:30)
[2018-11-26] MEDS: FUROSEMIDE 20 MG TAB PO SCH ×2 (05:49→17:13)
[2018-11-26 07:07] LABS: BASOPHILS % 0.3 % (0.0-1.0); EOSINOPHILS # (AUTO) 0.2 (0.0-0.4); EOSINOPHILS % 2.4 % (0.0-6.0); HEMATOCRIT 36.9 % (34.2-44.1); HEMOGLOBIN 12.8 g/dL (12.0-16.0); LYMPHOCYTES # (AUTO) 1.7 (1.0-3.2); LYMPHOCYTES % 26.2 % (18.0-39.1); MEAN CORPUSCULAR HEMOGLOBIN 30.2 pg (28-32); MEAN CORPUSCULAR HGB CONC 34.7 g/dL (31-35); MONOCYTES # (AUTO) 0.6 (0.2-0.8); MONOCYTES % 8.5 % (4.4-11.3); NEUTROPHILS # (AUTO) 4.1 (2.1-6.9); NEUTROPHILS % 62.3 % (38.7-80.0); PLATELET COUNT 210 x10e3/uL (140-360); RED BLOOD COUNT 4.24 x10e6/uL (3.6-5.1); RED CELL DISTRIBUTION WIDTH 13.5 % (11.7-14.4)
[2018-11-26 07:36] LABS: ANION GAP 15.8 mmol/L (8-16); BLOOD UREA NITROGEN 9 mg/dL (7-26); BUN/CREATININE RATIO 11 (6-25); CARBON DIOXIDE 24 mmol/L (22-29); CHLORIDE 105 mmol/L (98-107); CREATININE, SERUM 0.84 mg/dL (0.57-1.11); EST GLOMERULAR FILTRATION RATE > 60 ML/MIN (60-); GLUCOSE 99 mg/dL (74-118); POTASSIUM 3.8 mmol/L (3.5-5.1); SODIUM 141 mmol/L (136-145)
[2018-11-26] MEDS: METOPROLOL SUCCINATE 50 MG TAB XL PO SCH (08:27)
[2018-11-26] MEDS: POTASSIUM CHLORIDE 10MEQ EA PO SCH (08:27)
[2018-11-26] MEDS: AMIODARONE HCL 200 MG TAB PO SCH (08:27)
[2018-11-26] MEDS: APIXABAN 5 MG TABLET PO SCH ×2 (08:27→17:13)
--- NOTE | 2018-11-26 08:30 | NUR ---
Pt received resting in chair. Call manzanares within reach. Emotional support given. All meds given as ordered. Will monitor
[2018-11-26] MEDS: CEFEPIME 1GM/NS 0.9% 50 ML 50 ML IV SCH ×2 (11:00→23:00)
[2018-11-26] MEDS: VANCOMYCIN 1GM/NS 250 ML 250 ML IV SCH (11:30)
--- NOTE | 2018-11-26 15:39 | Diagnostic Imaging Report ---
EXAMINATION: CHEST 2 VIEWS INDICATION: ^right sided lung mass ^[id number] ^1515 ^Y COMPARISON: Chest x-ray and CT chest 11/24/2018 FINDINGS: PA and lateral views TUBES and LINES: None. LUNGS: Patchy airspace opacities in the mid and lower lung zones of the left lung are similar. Left upper lobe airspace opacity is similar to CT. Right perihilar airspace opacity is stable and corresponds to middle lobe collapse on CT. This is superimposed on diffuse hyperinflation. There is no evidence of pneumonia or pulmonary edema. PLEURA: Bilateral apical pleural thickening is stable. There is blunting of the right lateral costophrenic angle that is new. HEART AND MEDIASTINUM: Stable cardiomegaly and aortic ectasia. BONES AND SOFT TISSUES: The bones are diffusely demineralized. No focal osseous lesions. Soft tissues are unremarkable. UPPER ABDOMEN: No free air under the diaphragm. IMPRESSION: 1. Small right pleural effusion. 2. No change in airspace opacities in the left lung. No change in airspace opacity in the right midlung field suggestive of middle lobe atelectasis. Signed by: Dr. Shelley Stovall MD on 11/26/2018 3:35 PM
--- NOTE | 2018-11-26 19:00 | NUR ---
patient recieved awake, alert, lying quietly in bed. vss. no c/o pain noted. pm assessment complete. family noted at the bedside. patient/family instructed to call for assistance when needed.
[2018-11-27] VITALS (8 sets, daily range): BP systolic 113–142; BP diastolic 59–72
[2018-11-27] MEDS: ALBUTEROL/IPRATROPIUM 3 ML NEB NEB SCH ×6 (03:00→23:25)
[2018-11-27] MEDS: FUROSEMIDE 20 MG TAB PO SCH ×2 (05:32→17:31)
[2018-11-27 07:52] LABS: BASOPHILS % 0.3 % (0.0-1.0); EOSINOPHILS # (AUTO) 0.2 (0.0-0.4); EOSINOPHILS % 2.7 % (0.0-6.0); HEMATOCRIT 41.2 % (34.2-44.1); HEMOGLOBIN 13.5 g/dL (12.0-16.0); LYMPHOCYTES # (AUTO) 1.9 (1.0-3.2); LYMPHOCYTES % 26.6 % (18.0-39.1); MEAN CORPUSCULAR HEMOGLOBIN 29.2 pg (28-32); MEAN CORPUSCULAR HGB CONC 32.8 g/dL (31-35); MEAN CORPUSCULAR VOLUME 89.2 fL (81-99); MONOCYTES # (AUTO) 0.5 (0.2-0.8); MONOCYTES % 7.3 % (4.4-11.3); NEUTROPHILS # (AUTO) 4.4 (2.1-6.9); PLATELET COUNT 235 x10e3/uL (140-360); RED BLOOD COUNT 4.62 x10e6/uL (3.6-5.1); RED CELL DISTRIBUTION WIDTH 13.4 % (11.7-14.4)
[2018-11-27 08:22] LABS: ALBUMIN 3.8 g/dL (3.5-5.0); ALBUMIN/GLOBULIN RATIO 1.1 (0.8-2.0); ANION GAP 15.6 mmol/L (8-16); CALCIUM 9.4 mg/dL (8.4-10.2); CREATININE, SERUM 0.9 mg/dL (0.57-1.11); POTASSIUM 3.6 mmol/L (3.5-5.1)
[2018-11-27] MEDS ORDERED: SODIUM CHLORIDE 0.9% 250ML 250 ML ONE (08:59)
--- NOTE | 2018-11-27 09:00 | NUR ---
Pt received resting in bed with family at bedside. O2 @L NC in place. All meds given as ordered. Call manzanares within reach. Emotional support given. Call manzanares within reach. Will monitor
[2018-11-27] MEDS: APIXABAN 5 MG TABLET PO SCH (09:07)
[2018-11-27] MEDS: METOPROLOL SUCCINATE 50 MG TAB XL PO SCH (09:07)
[2018-11-27] MEDS: AMIODARONE HCL 200 MG TAB PO SCH (09:07)
[2018-11-27] MEDS: POTASSIUM CHLORIDE 10MEQ EA PO SCH (09:07)
[2018-11-27] MEDS: CEFEPIME 1GM/NS 0.9% 50 ML 50 ML IV SCH ×2 (10:39→22:37)
[2018-11-27] MEDS: VANCOMYCIN 1GM/NS 250 ML 250 ML IV SCH (11:30)
--- NOTE | 2018-11-27 16:58 | Consultation ---
DATE OF CONSULTATION: PULMONARY/CRITICAL CARE CONSULTATION REFERRING PHYSICIAN: Dr. Anson Gautam. CHIEF COMPLAINT: Right middle lobe atelectasis and possible endobronchial lesion. HISTORY OF PRESENT ILLNESS: The patient is an 88-year-old woman. She lived in [facility] [place] up until her early 80s. She spent most of her life cooking with a wood stove and has some subsequent COPD. In January of 2018, she required hospitalization for 2 to 3 weeks with respiratory failure and congestive heart failure. She had atrial fibrillation as well. After a prolonged course of antibiotics and cardiac medications, she could not be extubated. The family elected to withdraw support, but the patient improved after withdrawal from the ventilator and eventually went home. The patient now returns with increased cough and congestion. She denies any fevers. She denies any weight loss. Her initial x-ray did show some haziness in the right middle lobe and right lower lobe. She was started on antibiotics. A subsequent CT scan showed an endobronchial lesion at the orifice of the right middle lobe and some right middle lobe collapse. PAST MEDICAL HISTORY 1. History of acute respiratory failure, requiring 2 weeks of intubation and ventilator management. 2. History of atrial fibrillation. 3. History of systolic congestive heart failure. 4. History of COPD secondary to fumes from cooking with firewood. PAST SURGICAL HISTORY: Noncontributory. FAMILY HISTORY: Family history is noncontributory. SOCIAL HISTORY: The patient lived in [facility] [place] up until 4 to 5 years ago. She cooked with a wood stove most of her life. She has 16 children, 10 of whom are still alive. Four of her children still live in [facility] [place]. The remaining 6 children to live in the [facility]. REVIEW OF SYSTEMS: She denies any fever. She has no headache or neck pain. She is not having any chest pain. She does have some cough. She denies any abdominal pain. She has no nausea or vomiting. She has no diarrhea. She has no leg edema. PHYSICAL EXAMINATION VITAL SIGNS: The patient is afebrile. The vital signs are stable. HEENT: Shows no facial swelling or erythema. The nasal mucosa is normal. The oropharynx is normal. LYMPHATIC: Shows no submandibular, cervical, or supraclavicular adenopathy. CARDIAC: Reveals regular rate and rhythm with normal S1 and S2. There are no murmurs or rubs. LUNGS: Auscultation of the lungs reveals clear breath sounds bilaterally. There is no wheezing. ABDOMEN: Soft, nontender. There is no rebound or guarding. EXTREMITIES: Show no leg edema or calf tenderness. There is no cyanosis or clubbing. SKIN: Shows no rashes. RADIOGRAPHIC DATA: Chest CT shows a possible obstruction of the right middle lobe bronchus with some partial right middle lobe atelectasis. There are also some small pulmonary nodules of unclear significance. IMPRESSION 1. Endobronchial obstruction of the right middle lobe with possible postobstructive pneumonitis and postobstructive atelectasis. 2. Chronic obstructive pulmonary disease secondary to cooking with a wood stove. 3. Atrial fibrillation. 4. History of systolic congestive heart failure. PLAN 1. Recommend bronchoscopy with possible endobronchial biopsy in the right middle lobe. 2. Patient will need to be off Eliquis for at least 3 days prior to the procedure. Consequently, I have held Eliquis for now until definite arrangements can be made. 3. Complete antibiotics orally. 4. Continue current cardiac regimen except the Eliquis will need to be held prior to the biopsy. Job#: [id number] SERVANDO
--- NOTE | 2018-11-27 19:00 | NUR ---
patient recieved awake, alert, lying quietly in bed. vss. no c/o pain noted. respirations even and unlabored. pm assessment complete. family noted at the bedside. patient/family instructed to call for assistance when needed.
[2018-11-28 00:25] VITALS: BP 135/81
[2018-11-28] MEDS: ALBUTEROL/IPRATROPIUM 3 ML NEB NEB SCH ×4 (03:12→15:00)
[2018-11-28 04:41] VITALS: BP 108/62
[2018-11-28] MEDS: FUROSEMIDE 20 MG TAB PO SCH (05:29)
[2018-11-28 06:03] LABS: BASOPHILS % 0.5 % (0.0-1.0); EOSINOPHILS # (AUTO) 0.2 (0.0-0.4); EOSINOPHILS % 2.8 % (0.0-6.0); HEMATOCRIT 34.8 % (34.2-44.1); HEMOGLOBIN 12.4 g/dL (12.0-16.0); LYMPHOCYTES # (AUTO) 1.7 (1.0-3.2); LYMPHOCYTES % 27.2 % (18.0-39.1); MEAN CORPUSCULAR HEMOGLOBIN 30.6 pg (28-32); MEAN CORPUSCULAR HGB CONC 35.6 g/dL (31-35); MEAN CORPUSCULAR VOLUME 85.9 fL (81-99); MONOCYTES # (AUTO) 0.7 (0.2-0.8); MONOCYTES % 10.8 % (4.4-11.3); NEUTROPHILS # (AUTO) 3.7 (2.1-6.9); NEUTROPHILS % 58.4 % (38.7-80.0); PLATELET COUNT 227 x10e3/uL (140-360); RED BLOOD COUNT 4.05 x10e6/uL (3.6-5.1); RED CELL DISTRIBUTION WIDTH 13.6 % (11.7-14.4)
[2018-11-28 06:39] LABS: ANION GAP 15.1 mmol/L (8-16); BLOOD UREA NITROGEN 15 mg/dL (7-26); BUN/CREATININE RATIO 17 (6-25); CALCIUM 9.2 mg/dL (8.4-10.2); CARBON DIOXIDE 27 mmol/L (22-29); CHLORIDE 104 mmol/L (98-107); CREATININE, SERUM 0.86 mg/dL (0.57-1.11); EST GLOMERULAR FILTRATION RATE > 60 ML/MIN (60-); GLUCOSE 88 mg/dL (74-118); POTASSIUM 4.1 mmol/L (3.5-5.1); SODIUM 142 mmol/L (136-145)
--- NOTE | 2018-11-28 07:21 | NUR ---
PATIENT OUT OF BED TO CHAIR TALKING TO FAMILY MEMBER. O2 IN PLACE VIA N/C. DENIED PAIN AT THIS TIME. ALL PERSONAL ITEMS CLOSE TO PATIENT. BED IN LOWER POSITION, CALL LIGHT AT REACH.
[2018-11-28 07:25] VITALS: BP 136/63
[2018-11-28 07:50] VITALS: BP 136/63
[2018-11-28] MEDS: AMIODARONE HCL 200 MG TAB PO SCH (09:25)
[2018-11-28] MEDS: METOPROLOL SUCCINATE 50 MG TAB XL PO SCH (09:25)
[2018-11-28] MEDS: POTASSIUM CHLORIDE 10MEQ EA PO SCH (09:25)
--- NOTE | 2018-11-28 10:38 | NUR ---
PATIENT C/O CONSTIPATION. MD NOTIFIED, NEW ORDER RECEIVED.
[2018-11-28] MEDS ORDERED: MAGNESIUM HYDROXIDE 30 ML UDC PO NR (11:00)
[2018-11-28] MEDS: CEFEPIME 1GM/NS 0.9% 50 ML 50 ML IV SCH (11:27)
[2018-11-28] MEDS: VANCOMYCIN 1GM/NS 250 ML 250 ML IV SCH (11:45)
[2018-11-28 12:03] VITALS: BP 118/56
[2018-11-28 16:06] VITALS: BP 126/70
--- NOTE | 2018-11-28 16:34 | NUR ---
PATIENT HAD A LARGE BM. MOM EFFECTIVE. OUT OF BED TO CHAIR, CALL LIGHT AT REACH.
[2018-11-28] MEDS ORDERED: CEFUROXIME250 MG PO (16:41)
--- NOTE | 2018-11-28 17:10 | NUR ---
PATIENT DISCHARGED HOME. DISCHARGE INSTRUCTIONS, PRESCRIPTION, AND FOLLOW UP GIVEN TO PATIENT AND DAUGHTER, THEY VERBALIZED UNDERSTANDING. IV TO LEFT FOREARM REMOVED WITH TIP INTACT. ALL PERSONAL ITEMS TAKEN WITH PATIENT. LEFT UNIT PER WHEEL CHAIR TO FRONT LOBBY.
== END 2018-11-28 17:06 | disposition home or self-care (01) | DRG 194 ==
LOC: ER 09:23 → ERHOLD 12:34 → ICU 13:41 → MED/SURG3 21:59
DX: J18.9 Pneumonia, unspecified organism (principal); I50.20 Unspecified systolic (congestive) heart failure; J44.0 Chronic obstructive pulmonary disease with (acute) lower respiratory infection; N17.9 Acute kidney failure, unspecified; I11.0 Hypertensive heart disease with heart failure; J18.0 Bronchopneumonia, unspecified organism; J20.9 Acute bronchitis, unspecified; I48.91 Unspecified atrial fibrillation; Z87.891 Personal history of nicotine dependence
CPT/HCPCS: 36415; 71045; 71046; 71260; 80048; 80053; 80202; 81001; 83605; 83880; 85025; 87040; 87400; 93005; 94640; 96361; 99284; J0692; J3370; J7030; J7040; J7050; Q9967